=== PATIENT | male | born 1980 | race Caucasian/White ===

== ENCOUNTER 2017-11-29 14:51 | Emergency (ER) | payer MEDICAID, SELFPAY ==
[2017-11-29 14:55] VITALS: BP 139/87; PULSE 94; RESP 18; TEMP 36.4; O2SAT 100
--- NOTE | 2017-11-29 15:18 | DI.REPORT_ITS ---
SYMPTOMS/DIAGNOSIS: PAIN LATERALLY AFTER ROTATIONAL INJURY RIGHT FOOT: Three views. No acute fracture or dislocation is identified. No radiopaque foreign bodies are seen in the soft tissues. IMPRESSION: No acute abnormality.
--- NOTE | 2017-11-29 15:19 | ED.GENADUL ---
Disposition Clinical Impression: Foot sprain Disposition: HOME Condition: Fair Instructions: Foot Sprain (ED) Additional Instructions: Encourage rest, ice, elevation. Ibuprofen as needed for discomfort. You may take 600 mg 4 times daily. You may try topical options such as lidocaine patches to help with discomfort. Please follow-up with primary care if pain persists over the next 1-2 weeks. Postoperative shoe while pain persists. If you develop new or worsening symptoms please seek care urgently once again. Referrals: Nuvia Son DO [Primary Care Provider] - Medical Decision Making - Medical Decision Making Patient presents today with chief complaint of right foot pain after rotational injury. Patient's exam is concerning for ecchymosis and swelling along the lateral aspect of the foot. He is tender over the proximal fifth metatarsal. He is admitting with an antalgic gait. No pain with palpation about the ankle. Good range of motion although he does endorse some discomfort with dorsiflexion. Will obtain images to evaluate for possible fracture. Patient is requesting analgesics. He is allergic to Tylenol, will give ibuprofen. X-ray reviewed by myself as well as radiologist no acute abnormality noted. Discussed findings with the patient. Advised him sprain. Encourage rest, ice, elevation. Advised ibuprofen as needed for discomfort. Patient reports the ibuprofen was only minimal successful at helping with discomfort. We will augment this with a Lidoderm patch. Advise follow-up with primary care in 1 week if pain persists. He will be fitted with a postoperative shoe to help with pain with ambulation. We discussed new/worsening symptoms when to seek care urgently once again. All his questions and concerns were addressed and he is in agreement this plan. History of Present Illness - General Chief complaint: Orthopedic Stated complaint: RT FOOT INJURY Time Seen by Provider: 11/29/17 14:56 Source: patient, RN notes reviewed Mode of arrival: ambulatory Limitations: no limitations - History of Present Illness Initial comments: Patient is a 37-year-old male presenting today with chief complaint of right foot pain. He reports that prior to arrival, after sitting for any sign a period of time, his fell asleep. When we went to stand, his toe caught on the run and he suffered an internal rotational event to the right foot. Had initially thought pain was in the ankle but now identifies the pain more in the foot. Notes area of swelling and ecchymosis along the lateral aspect of the foot. States that he has been having pain with ambulation since he denies any altered sensation. Denies any other injury the time the incident. He did not fall. Denies any pain in the knee. States that he can have pain that radiates proximally particularly with dorsiflexion of the foot. - Related Data Amphet Asp/Amphet/D-Amphet [Adderall 10MG Tablet] 10 mg PO DAILY PRN PRN 10/21/17 Amphet Asp/Amphet/D-Amphet [Adderall Xr 30MG Capsule SA] 30 mg PO DAILY AM 10/21/17 Diazepam [Valium] 5 mg PO TID PRN #10 tab 10/21/17 Escitalopram Oxalate [Lexapro] 20 mg PO DAILY AM 10/21/17 Allergies Allergy/AdvReac Type Severity Reaction Status Date / Time Penicillins Allergy Intermediate throat Unverified 11/29/17 14:58 swelling and hives acetaminophen [From Tylenol] AdvReac Intermediate nausea Unverified 11/29/17 14:58 Review of Systems Constitutional: no symptoms reported Respiratory: no symptoms reported Musculoskeletal: as per HPI Skin: as per HPI Neurological: as per HPI Past Medical History - Past Medical History Medical history: GERD Back problem Surgical history: no surgical history General Exam - General Limitations: no limitations General appearance: alert, in no apparent distress - Head Head exam: Present: atraumatic - Eye Eye exam: Present: normal apperance - Respiratory Respiratory exam: Absent: respiratory distress - Extremities Exam Extremities exam: Present: full ROM (Full range of motion of the ankle although he does endorse discomfort particularly dorsiflexion.), tenderness, normal capillary refill. Absent: normal inspection (Exam the patient's right lower extremity significant for a 3 cm in diameter area of ecchymosis and swelling over the axonal lateral aspect of the patient's right foot. No pain to palpation over the lateral malleolus. No pain of the medial malleolus. Achilles is palpable and felt to be intact. Negative Delgadillo test. No pain with palpation over the fibular head or neck. Sensation is intact in the toes. Brisk capillary refill. 2+ distal pulses. Patient does endorse some discomfort with palpation over the proximal fifth metatarsal.), pedal edema, joint swelling, calf tenderness - Neurological Exam Neurological exam: Present: alert, abnormal gait (Ambulating with an antalgic gait). Absent: motor sensory deficit - Psychiatric Psychiatric exam: Present: normal affect, normal mood - Skin Skin exam: Present: warm, dry, intact. Absent: normal color (Ecchymosis as above) Course Vital Signs - 24 hr 11/29/17 14:55 Temperature 36.4 C L Pulse 94 H Respiratory 18 Rate Blood Pressure 139/87 Pulse Oximetry 100
[2017-11-29] MEDS: Ibuprofen 600 MG TAB PO (15:23)
[2017-11-29] MEDS: Lidocaine 5% Patch 1 PATCH TP (16:09)
== END 2017-11-29 16:15 | disposition home or self-care (01) ==
LOC: ER 11-30 10:14
PROVIDERS: Emergency Provider Student in an Organized Health Care Education/Training Program; PCP Student in an Organized Health Care Education/Training Program
DX: S93.601A Unspecified sprain of right foot, initial encounter (principal); X50.1XXA Overexertion from prolonged static or awkward postures, initial encounter
CPT/HCPCS: 29515; 99284; 73630

== ENCOUNTER 2018-07-20 18:02 | Emergency (ER) | payer MEDICAID, SELFPAY ==
[2018-07-20 18:09] VITALS: BP 146/74; PULSE 112; RESP 16; TEMP 37.1; O2SAT 100
--- NOTE | 2018-07-20 19:26 | DI.US_ITS ---
SYMPTOMS/DIAGNOSIS: LEFT TESTICULAR SWELLING, CUT SCROTUM SHAVING 3 DAYS AGO THEN HAD INTERCOURSE, ? MRSA, ? ABSCESS SCROTAL ULTRASOUND: There is marked scrotal skin thickening. There are small bilateral hydroceles. There is debris within the right hydrocele, which could indicate infection. There is mild hyperemia of the left testicle. The epididymides are unremarkable. There is edema in the left inguinal canal. No drainable fluid collection is seen. There are multiple enlarged, hyperemic lymph nodes, the largest measuring 3 cm, consistent with reactive lymph nodes. Bilateral varicoceles are seen, left greater than right, increasing with Valsalva. IMPRESSION: Scrotal cellulitis as well as left inguinal cellulitis, greater on the left. Reactive inguinal lymph nodes. Small bilateral hydroceles, as well as varicoceles. Mild left orchitis.
[2018-07-20] MEDS: Normal Saline 1,000 ML 1000 ML IV (19:47)
--- NOTE | 2018-07-20 19:52 | ED.GENADUL_ITS ---
Discharge Plan Disposition Patient Disposition: [facility] Condition: Stable Discharge Details Chief Complaint: Cellulitis Clinical Impression: Abscess of scrotum Primary Care Provider: Emily Bolanos ED Provider: Randolph Murphy Home Meds and New Rx's Prescriptions: No Action dextroamphetamine-amphetamine 10 MG tablet 15 mg PO DAILY PRN PRNRF: 0 dextroamphetamine-amphetamine 30 MG capsule,extended release 24hr 30 mg PO DAILY AM RF: 0 escitalopram oxalate [Lexapro] 20 MG tablet 20 mg PO DAILY AM RF: 0 sulfamethoxazole-trimethoprim [Bactrim DS] 800-160 mg Tablet 1 tab PO BID RF: 0 Discharge Data Discharge Date/Time-TO BE ENTERED AT DEPARTURE: 07/21/18 01:25 Medical Decision Making Patient presented to the emergency department for chief complaint of testicular infection. Patient states approximately 5 days ago he had what he thought were 2 small pimples from shave testicle area that turned into larger pimples causing significant pain and redness. Today the right testicle opened up and used a whitish fluid but the left testicle is continued to swell and causing radiating discomfort into the left groin area. Physical exam shows open lesion approximately 1 cm in diameter with purulent drainage noted and surrounding erythema. Right testicle is mild to moderately tender. Left testicle is significantly swollen with erythema, significant induration, and difficult to palpate for any lymphadenopathy due to swelling to groin and tenderness. Plan to check labs, establish IV access, give vancomycin, perform wound culture. Patient has no ecchymosis noted so doubt guadalupe gangrene but it is considered. Plan to do ultrasound of the testicle. Of note is that patient significant other was recently diagnosed and treated for MRSA infection of the face. Review of labs show a leukocytosis, unremarkable CMP with normal sodium, creatinine, and glucose. Urinalysis shows no signs of urinary infection. IMPRESSION: 1. Extensive left groin cellulitis with evidence for an underlying small subcutaneous abscess and questionable draining skin tract with skin pustule. Cellulitis/inflammatory changes extend throughout the left hemiscrotum as well. Please review above for details. 2. Testicles appear unremarkable by CT, however please note that CT is not the study of choice for evaluation of testicular pathology, and therefore further evaluation with ultrasound is recommended if clinically warranted. 3. Other incidental findings as detailed above. Multiple attempts were made to get a hold of local urologist for concern of abscess needing drainage of the left testicle. Due to no local availability for urology I did call and contact [facility] and was able to speak to urologist Dr. Razo whom recommended patient be transferred to emergency department for procedure. Spoke with attending ED whom accepted transfer patient and recommended Zosyn for gram-negative coverage on top of the vancomycin but given patient has victoria allergy of throat swelling and hives patient was placed upon Aztreonam 1 g for gram-negative coverage. Patient was agreeable to this plan. Lab Data Lab Results 07/20/18 07/20/18 07/20/18 Range/Units 19:40 19:40 19:40 WBC 12.93 H (4.4-10.8) k/cumm RBC 4.23 L (4.50-6.00) m/cumm Hgb 12.7 L (13.5-17.5) g/dL Hct 38.4 L (40.0-50.0) % MCV 90.8 (80-95) fL MCH 30.0 (27.0-33.0) pg MCHC 33.1 (32.0-36.0) g/dL RDW 13.3 (11.8-14.1) % Plt Count 163 (130-400) x1000/uL MPV 10.5 (8.0-11.0) fL Immature Gran % 0.2 Neutrophils % 78.5 Lymphocytes % 10.9 Monocytes % 9.7 Eosinophils % 0.5 Basophils % 0.2 Absolute Neutrophils 10.15 H (1.2-6.7) k/cumm Absolute Lymphocytes 1.41 (1.2-3.4) k/cumm Absolute Monocytes 1.25 H (0.11-0.7) k/cumm Absolute Eosinophils 0.06 (0.0-0.7) k/cumm Absolute Basophils 0.03 (0.0-0.2) k/cumm ESR (0-15) MM/HR Sodium 138 (136-145) mmol/L Potassium 4.2 (3.5-5.1) mmol/L Chloride 100 (98-107) mmol/L Carbon Dioxide 27.8 (21.0-32.0) mmol/L Anion Gap 10.2 (3-11) mmol/L BUN 15 (7-18) mg/dL Creatinine 1.08 (0.70-1.30) mg/dL Estimated GFR/1.73 m2 >= 60.00 (mL/min/1.73m2) Glucose 89 (70-100) mg/dL Lactate 1.4 (0.6-1.4) mmol/L Calcium 8.4 L (8.5-10.1) mg/dL Total Bilirubin 0.4 (0.2-1.0) mg/dL AST 31 (15-37) U/L ALT 72 (12-78) U/L Alkaline Phosphatase 87 (46-116) U/L C-Reactive Protein (0.0-0.3) mg/dL Total Protein 7.6 (6.4-8.2) g/dL Albumin 3.8 (3.4-5.0) g/dL Urine Color (Yellow) Urine Clarity Urine pH (5-8) Ur Specific [place] (1.005-1.025) Urine Protein (Negative) mg/dL Urine Ketones (Negative) mg/dL Urine Blood (Negative) Urine Nitrite (Negative) Urine Bilirubin (Negative) Urine Urobilinogen (Up TO 0.2) EU/dL Ur Leukocyte Esterase (Negative) Urine RBC (0-2) Urine WBC (0-5) HPF Ur Epithelial Cells (Negative) HPF Urine Crystals (Negative) HPF Urine Bacteria (Negative) HPF Urine Casts (Negative) LPF Urine Mucus (Negative) Urine Other (Negative) Ur Culture Indicated? Urine Glucose (Negative) mg/dL 07/20/18 07/20/18 07/20/18 Range/Units 19:40 19:40 20:05 WBC (4.4-10.8) k/cumm RBC (4.50-6.00) m/cumm Hgb (13.5-17.5) g/dL Hct (40.0-50.0) % MCV (80-95) fL MCH (27.0-33.0) pg MCHC (32.0-36.0) g/dL RDW (11.8-14.1) % Plt Count (130-400) x1000/uL MPV (8.0-11.0) fL Immature Gran % Neutrophils % Lymphocytes % Monocytes % Eosinophils % Basophils % Absolute Neutrophils (1.2-6.7) k/cumm Absolute Lymphocytes (1.2-3.4) k/cumm Absolute Monocytes (0.11-0.7) k/cumm Absolute Eosinophils (0.0-0.7) k/cumm Absolute Basophils (0.0-0.2) k/cumm ESR 29 H (0-15) MM/HR Sodium (136-145) mmol/L Potassium (3.5-5.1) mmol/L Chloride (98-107) mmol/L Carbon Dioxide (21.0-32.0) mmol/L Anion Gap (3-11) mmol/L BUN (7-18) mg/dL Creatinine (0.70-1.30) mg/dL Estimated GFR/1.73 m2 (mL/min/1.73m2) Glucose (70-100) mg/dL Lactate (0.6-1.4) mmol/L Calcium (8.5-10.1) mg/dL Total Bilirubin (0.2-1.0) mg/dL AST (15-37) U/L ALT (12-78) U/L Alkaline Phosphatase (46-116) U/L C-Reactive Protein 6.31 H (0.0-0.3) mg/dL Total Protein (6.4-8.2) g/dL Albumin (3.4-5.0) g/dL Urine Color Yellow (Yellow) Urine Clarity Clear Urine pH 6.5 (5-8) Ur Specific [place] 1.015 (1.005-1.025) Urine Protein Negative (Negative) mg/dL Urine Ketones Negative (Negative) mg/dL Urine Blood Trace-intact H (Negative) Urine Nitrite Negative (Negative) Urine Bilirubin Negative (Negative) Urine Urobilinogen 1.0 H (Up TO 0.2) EU/dL Ur Leukocyte Esterase Negative (Negative) Urine RBC 0-2 (0-2) Urine WBC Negative (0-5) HPF Ur Epithelial Cells Negative (Negative) HPF Urine Crystals Negative (Negative) HPF Urine Bacteria Negative (Negative) HPF Urine Casts Negative (Negative) LPF Urine Mucus Negative (Negative) Urine Other Negative (Negative) Ur Culture Indicated? No Urine Glucose Negative (Negative) mg/dL HPI General Mode of arrival: ambulatory . Date/Time Provider Initiated Documentation: 07/20/18 18:53 . Limitations to Documentation: no limitations . Information obtained by: patient and RN notes reviewed . History of Present Illness 38 year old M presents to the emergency department with the chief complaint of Testicle infection, described as severe, with intensity rated at 7. Quality is described as aching, and is localized to the genitals. Patient started experiencing this day(s) (5) and it has been constant. No relieving factors improve symptom(s), Patient did receive the following treatments prior to arrival, none Related Data Home Medications Medication Instructions Recorded Confirmed dextroamphetamine-amphetamine 15 mg PO DAILY PRN PRN 10/21/17 07/23/18 dextroamphetamine-amphetamine 30 mg PO DAILY AM 10/21/17 07/23/18 escitalopram oxalate [Lexapro] 20 mg PO DAILY AM 10/21/17 07/23/18 sulfamethoxazole-trimethoprim 1 tab PO BID 07/22/18 07/23/18 [Bactrim DS] Allergies Allergy/AdvReac Type Severity Reaction Status Date / Time Penicillins Allergy Intermediate throat Unverified 07/22/18 10:07 swelling and hives acetaminophen [From Tylenol] AdvReac Intermediate nausea Unverified 07/22/18 10:07 General Stated Complaint: Cellulitis LIDA: 3 Review of Systems Constitutional Reports chills, Reports malaise and Reports night sweats Cardiovascular Denies chest pain and Denies dyspnea Respiratory Denies dyspnea Gastrointestinal Reports abdominal pain, Reports nausea and Denies vomiting Genitourinary Reports as per HPI, Denies difficulty urinating, Reports genital pain, Denies dysuria, Denies penile discharge, Reports scrotal swelling and Reports testicular mass [facility] Medical History ADHD (Acute) Cellulitis of scrotum (Acute) Substance abuse (Suspected) Family History Mother Stroke Father No problems noted. Sister No problems noted. 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 Do you feel safe at home: Yes Do you feel safe in your relationship?: Yes Exam Const General: cooperative, no acute distress and not ill appearing Orientation: alert, awake and oriented x3 HENMT Mouth: moist mucous membranes Resp Effort & Inspection: normal respiratory effort, able to speak in complete sentences and no respiratory distress Cardio Rate: tachycardic Rhythm: regular rhythm Scrotum: erythematous bilaterally and scrotal mass bilaterally (left worse than right, right open and draining) erythematous, fixed, firm and tender Course Vital Signs Temperature 37.1 C 07/20/18 18:09 Pulse 112 H 07/20/18 18:09 Respiratory Rate 16 07/20/18 18:09 Blood Pressure 146/74 H 07/20/18 18:09 Pulse Oximetry 100 07/20/18 18:09 Temperature 37.1 C 07/20/18 18:09 Temperature Source Skin 07/20/18 18:09 Pulse 112 H 07/20/18 18:09 Respiratory Rate 16 07/20/18 18:09 Respiratory Effort Non-Labored 07/20/18 18:09 Blood Pressure 146/74 H 07/20/18 18:09 Blood Pressure Position Sitting 07/20/18 18:09 Pulse Oximetry 100 07/20/18 18:09 Oxygen Delivery Method Room Air 07/20/18 18:09 Oxygen Flow Rate 0 07/20/18 18:09 Pain Level 7 07/20/18 18:09 Lab/Test Results Lab/Test Results: 07/20/18 19:48 Scrotum Wound Culture - Pending 07/20/18 19:48 Scrotum Gram Stain - Pending
[2018-07-20 19:54] LABS: Lactate 1.4 mmol/L (0.6-1.4)
[2018-07-20 19:57] LABS: Abs Immature Grans 0.03 k/cumm (0.0-0.09); Absolute Lymphocyte Count 1.41 k/cumm (1.2-3.4); Absolute Monocyte Count 1.25 k/cumm (0.11-0.7); Absolute Neutrophil Count 10.15 k/cumm (1.2-6.7); Basophils % 0.2; Eosinophils % 0.5; HCT 38.4 % (40.0-50.0); HGB 12.7 g/dL (13.5-17.5); Immature Grans % 0.2; Lymphocytes % 10.9; Mean Corp. HGB Concentration 33.1 g/dL (32.0-36.0); Mean Corpuscular Volume 90.8 fL (80-95); Mean Platelet Volume 10.5 fL (8.0-11.0); Monocytes % 9.7; Neutrophils % 78.5; Platelet Count 163 x1000/uL (130-400); RBC 4.23 m/cumm (4.50-6.00); RBC Distribution Width 13.3 % (11.8-14.1); White Blood Cell Count 12.93 k/cumm (4.4-10.8)
[2018-07-20 20:07] LABS: Absolute Basophil Count 0.03 k/cumm (0.0-0.2); Absolute Eosinophil Count 0.06 k/cumm (0.0-0.7)
[2018-07-20 20:12] LABS: ALT 72 U/L (12-78); AST 31 U/L (15-37); Albumin 3.8 g/dL (3.4-5.0); Alkaline Phosphatase 87 U/L (46-116); Anion Gap 10.2 mmol/L (3-11); BUN 15 mg/dL (7-18); Bilirubin, Total 0.4 mg/dL (0.2-1.0); CO2 27.8 mmol/L (21.0-32.0); CREATININE 1.08 mg/dL (0.70-1.30); Calcium 8.4 mg/dL (8.5-10.1); Chloride 100 mmol/L (98-107); Glucose 89 mg/dL (70-100); Potassium 4.2 mmol/L (3.5-5.1); Sodium 138 mmol/L (136-145); Total Protein 7.6 g/dL (6.4-8.2)
[2018-07-20 20:13] LABS: Bilirubin Negative (Negative); Blood Trace-intact (Negative); Clarity Clear; Glucose Negative (Negative); Ketones Negative (Negative); Leukocyte Esterase Negative (Negative); Nitrite Negative (Negative); Specific Gravity 1.015 (1.005-1.025); pH 6.5 (5-8)
[2018-07-20 20:19] LABS: Bacteria Negative HPF (Negative); Casts Negative LPF (Negative); Crystals Negative HPF (Negative); Epithelial Cells Negative HPF (Negative); Mucus Negative (Negative); Other Cells Negative (Negative); RBC 0-2 (0-2); WBC Negative HPF (0-5)
[2018-07-20 20:20] LABS: C & S Indicated? No
[2018-07-20] MEDS: VANCOMYCIN 1,500 MG in Normal Saline 250 ML 166.6666 MG IVPB (20:23)
--- NOTE | 2018-07-20 20:35 | DI.CT_ITS ---
SYMPTOMS/DIAGNOSIS: TESTICULAR INFECTION CT OF THE PELVIS: The exam was performed following IV contrast. There is marked scrotal skin thickening. The testicles appear symmetric. The findings appear greater on the left side. There is also stranding in the subcutaneous fat of the inguinal regions bilaterally, left greater than right. No drainable abscess is identified. The bladder, prostate and visualized portions of the bowel are unremarkable. IMPRESSION: Marked scrotal and inguinal cellulitis. No drainable abscess is visible.
[2018-07-20] MEDS: HYDROmorphone 2 MG/ML VIAL 0.5 MG IVP ×2 (20:38→21:55)
[2018-07-20 20:41] LABS: C-Reactive Protein 6.31 mg/dL (0.0-0.3)
[2018-07-20] MEDS: Ibuprofen 600 MG TAB (20:45)
[2018-07-20] MEDS: Omnipaque 350 MG/ML 100 ML BTL IJ (21:00)
[2018-07-20 21:07] LABS: ESR 29 MM/HR (0-15)
--- NOTE | 2018-07-20 21:19 | DI.VRAD_ITS ---
EXAM: CT Abdomen and Pelvis With Contrast EXAM DATE/TIME: 07/20/2018 8:36 PM CLINICAL HISTORY: 38 years old, male; Other: Testicular pain; Patient HX: Elevated wbc, testicular swelling, rule out testicular infection. TECHNIQUE: Imaging protocol: Axial computed tomography images of the abdomen and pelvis with intravenous contrast. Radiation optimization: All CT scans at this facility use at least one of these dose optimization techniques: automated exposure control; mA and/or kV adjustment per patient size (includes targeted exams where dose is matched to clinical indication); or iterative reconstruction. Contrast material: OMNIPAQUE 350; Contrast volume: 100 ml; Contrast route: IV; COMPARISON: No relevant prior studies available. FINDINGS: Limitations: The mid to upper abdomen was not completely included in this examination. ABDOMEN: Liver: Liver is not completely included in this examination. There is a 8mm hypodense lesion in the left hepatic lobe on image 4 series 2 which is incompletely characterized on this exam, however favors a cyst. Remainder of the visualized liver appears unremarkable. Gallbladder and bile ducts: Gallbladder is incompletely imaged, however visualized segments are unremarkable. Biliary system is incompletely imaged, however no discrete biliary ductal dilation is appreciated. Pancreas: Visualized pancreatic head appears unremarkable. Remainder of the pancreas was not imaged. Spleen: Visualized segments of the spleen appear unremarkable. Adrenals: Normal. No mass. Kidneys and ureters: Visualized kidneys appear unremarkable. Stomach and bowel: Normal. No obstruction. No mucosal thickening. Appendix: No evidence of appendicitis. PELVIS: Bladder: Unremarkable as visualized. Reproductive: Prostate gland appears unremarkable. The testicles appear unremarkable by CT, however please note that this is not the study of choice for evaluation of testicular pathology. Visualized segments of the penis appear grossly unremarkable. ABDOMEN and PELVIS: Intraperitoneal space: Normal. No free air. No significant fluid collection. Bones/joints: No acute skeletal abnormality or aggressive osseous lesion. Soft tissues: There is significant soft tissue swelling and stranding throughout the left groin subcutaneous tissues, with an associated 1.3 cm by 9.6 mm x 2.9 cm rim-enhancing fluid collection (image 61 series 2 and image 19 series 4) favoring abscess. There is question of a small draining tract into the skin with an associated small skin pustule (image 51 series 5). Inflammatory changes extend up the left hemiscrotum, with significant skin thickening of the left hemiscrotum when compared with the right. There is mild soft tissue swelling at the mons pubis likewise noted. Vasculature: Normal. No abdominal aortic aneurysm. Lymph nodes: There is reactive left inguinal adenopathy. IMPRESSION: 1. Extensive left groin cellulitis with evidence for an underlying small subcutaneous abscess and questionable draining skin tract with skin pustule. Cellulitis/inflammatory changes extend throughout the left hemiscrotum as well. Please review above for details. 2. Testicles appear unremarkable by CT, however please note that CT is not the study of choice for evaluation of testicular pathology, and therefore further evaluation with ultrasound is recommended if clinically warranted. 3. Other incidental findings as detailed above. Dictated and Authenticated by: Yves Kessler MD. Ordering:NURY Dickson MD
--- NOTE | 2018-07-20 22:20 | DI.VRAD_ITS ---
EXAM: US Scrotum EXAM DATE/TIME: 07/20/2018 9:33 PM CLINICAL HISTORY: 38 years old, male; Signs and symptoms; Other: PT cut himself shaving scrotum on left and right lateral sides, then developed pain/swelling in scrotum especially to left side and left inguinal canal TECHNIQUE: Imaging protocol: Real-time ultrasound of the scrotum and contents with color Doppler and image documentation. COMPARISON: No relevant prior studies available. FINDINGS: Right Testicle: Normal. No mass. No torsion. Normal vascular flow. Left Testicle: Normal. No mass. No torsion. Slightly more pronounced vascularity when compared with the right. Epididymides: There is a tiny left epididymal head cyst measuring 1.8 mm, of no concern. Epididymis appear otherwise unremarkable. Scrotum: The there is a small right hydrocele with heterogeneous internal contents. Small complex left varicocele with internal debris likely seen. Small bilateral varicoceles suggested. Diffuse scrotal wall thickening, most pronounced on the left side. Diffuse scrotal hyperemia. Lymph nodes: There is left inguinal adenopathy. Other findings: Diffuse swelling and edema throughout the left inguinal canal. No discrete fluid collection is noted within the left inguinal region in the provided images. IMPRESSION: 1. Diffuse scrotal cellulitis, more pronounced on the left hemiscrotum. 2. Slightly more hyperemic left testicle, raising concern for the possibility of early left orchitis. 3. Small bilateral complex hydroceles. 4. Small bilateral varicoceles suggested. 5. Diffuse left inguinal cellulitis and reactive adenopathy. No discrete fluid collections identified in the provided images. Dictated and Authenticated by: Yves Kessler MD. Ordering:NURY Dickson MD
[2018-07-20 22:51] VITALS: BP 99/60; PULSE 86; RESP 18; TEMP 36.5; O2SAT 98
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
[2018-07-21 00:56] VITALS: BP 100/65; PULSE 87; RESP 18; TEMP 36.9; O2SAT 98
[2018-07-21] MEDS: HYDROmorphone 2 MG/ML VIAL (01:04)
[2018-07-21 01:14] VITALS: BP 100/65; PULSE 87; RESP 18; TEMP 36.9; O2SAT 98
== END 2018-07-21 01:25 | disposition short-term general hospital (02) ==
PROVIDERS: Emergency Provider Nurse Practitioner Family; PCP Nurse Practitioner
DX: N49.2 Inflammatory disorders of scrotum (principal)
CPT/HCPCS: 80053; 85652; 87077; 96361; 96365; 96367; 96375; 99285; 72193; 76870; 81003; 81015; 83605; 85025; 86140; 87070; 87186; 87205; 99284; J3490

== ENCOUNTER 2018-07-22 09:52 | Observation (INO) | payer MEDICAID, SELFPAY ==
[2018-07-22 09:56] VITALS: BP 139/71; PULSE 95; RESP 14; TEMP 37.1; O2SAT 100
--- NOTE | 2018-07-22 10:13 | W.ED.GENAD ---
Discharge Plan Disposition Patient Disposition: [facility] INPATIENT Condition: Stable Discharge Details Chief Complaint: Cellulitis Clinical Impression: Cellulitis of scrotum Primary Care Provider: Emily Bolanos ED Provider: Micah Hurd Home Meds and New Rx's Prescriptions: No Action dextroamphetamine-amphetamine 10 MG tablet 15 mg PO DAILY PRN PRNRF: 0 dextroamphetamine-amphetamine 30 MG capsule,extended release 24hr 30 mg PO DAILY AM RF: 0 escitalopram oxalate [Lexapro] 20 MG tablet 20 mg PO DAILY AM RF: 0 sulfamethoxazole-trimethoprim [Bactrim DS] 800-160 mg Tablet 1 tab PO BID RF: 0 Medical Decision Making 38-year-old male who was initially seen in the emergency department on July 20, transferred to [facility] for scrotal abscess. He reports drainage during this procedures and the use of vancomycin as an inpatient. He states that he was discharged home, partly due to his required attendance at a parental meeting. He has been taking Bactrim since the time of discharge. He was scheduled for urology outpatient follow-up this morning at 930 but was unable to make it due to ongoing pain and swelling in the scrotal region. He states this is worse. Patient's wound culture obtained on July 20 reveals MRSA with susceptible abilities pending. He is afebrile with normal blood pressure. IV placed, labs obtained including blood culture. Patient given fluid bolus, vancomycin, urology consult placed and patient seen in the ED by Dr Nichols. CT images obtained without evidence of abscess. He certainly has soft tissue stranding and edematous changes primarily on the left side of the mons pubis. Reviewed with Dr. Nichols and Dr. Jamison. Dr. Nichols recommends admission to the medicine service with urology in consultation. Ongoing daily parenteral antibiotics. Patient to be n.p.o. for the morning but may eat tonight. No planned surgical approach at this time. Lab Data Lab results reviewed: Yes I reviewed the patient's lab results. Laboratory Results - last 24 hr 07/22/18 07/22/18 07/22/18 10:15 10:15 10:15 WBC 10.12 RBC 4.37 L Hgb 13.4 L Hct 39.9 L MCV 91.3 MCH 30.7 MCHC 33.6 RDW 13.2 Plt Count 188 MPV 10.4 Immature Gran % 0.1 Neutrophils % 77.6 Lymphocytes % 11.5 Monocytes % 9.5 Eosinophils % 1.0 Basophils % 0.3 Absolute Neutrophils 7.86 H Absolute Lymphocytes 1.16 L Absolute Monocytes 0.96 H Absolute Eosinophils 0.10 Absolute Basophils 0.03 Sodium 137 Potassium 3.6 Chloride 99 Carbon Dioxide 27.1 Anion Gap 10.9 BUN 9 D Creatinine 1.06 Estimated GFR/1.73 m2 >= 60.00 Glucose 110 H Lactate 1.2 Calcium 9.0 Magnesium 1.8 Total Bilirubin 0.5 AST 45 H ALT 80 H Alkaline Phosphatase 111 Total Protein 8.4 H Albumin 4.1 Urine Color Urine Clarity Urine pH Ur Specific [place] Urine Protein Urine Ketones Urine Blood Urine Nitrite Urine Bilirubin Urine Urobilinogen Ur Leukocyte Esterase Urine RBC Urine WBC Ur Epithelial Cells Urine Crystals Urine Bacteria Urine Casts Urine Mucus Urine Other Ur Culture Indicated? Urine Glucose 07/22/18 10:27 WBC RBC Hgb Hct MCV MCH MCHC RDW Plt Count MPV Immature Gran % Neutrophils % Lymphocytes % Monocytes % Eosinophils % Basophils % Absolute Neutrophils Absolute Lymphocytes Absolute Monocytes Absolute Eosinophils Absolute Basophils Sodium Potassium Chloride Carbon Dioxide Anion Gap BUN Creatinine Estimated GFR/1.73 m2 Glucose Lactate Calcium Magnesium Total Bilirubin AST ALT Alkaline Phosphatase Total Protein Albumin Urine Color Kiki Urine Clarity Clear Urine pH 7.0 Ur Specific [place] 1.025 Urine Protein 30 H Urine Ketones 15 H Urine Blood Negative Urine Nitrite Negative Urine Bilirubin Moderate H Urine Urobilinogen >=8.0 Ur Leukocyte Esterase Negative Urine RBC 0-2 Urine WBC 0-2 Ur Epithelial Cells Rare Urine Crystals Negative Urine Bacteria Rare Urine Casts Negative Urine Mucus Trace Urine Other Few yeast Ur Culture Indicated? No Urine Glucose Negative HPI General Mode of arrival: ambulatory. Date/Time Provider Initiated Documentation: 07/22/18 09:55. Limitations to Documentation: no limitations. Information obtained by: patient. History of Present Illness 38 year old M presents to the emergency department with the chief complaint of Scrotal infection. Discharge from [facility] yesterday, described as moderate, Quality is described as burning, dull and constant, and is localized to the pelvis and genitals. Patient started experiencing this day(s) and it has been constant. No relieving factors improve symptom(s), No exacerbating factors reported . Patient notes fever/chills, loss of appetite and rash. Patient did receive the following treatments prior to arrival, other (On Bactrim. Had received vancomycin during admission to [facility]) Related Data Home Medications Medication Instructions Recorded Confirmed dextroamphetamine-amphetamine 15 mg PO DAILY PRN PRN 10/21/17 07/22/18 dextroamphetamine-amphetamine 30 mg PO DAILY AM 10/21/17 07/22/18 escitalopram oxalate [Lexapro] 20 mg PO DAILY AM 10/21/17 07/22/18 sulfamethoxazole-trimethoprim 1 tab PO BID 07/22/18 07/22/18 [Bactrim DS] Allergies Allergy/AdvReac Type Severity Reaction Status Date / Time Penicillins Allergy Intermediate throat Unverified 07/22/18 10:07 swelling and hives acetaminophen [From Tylenol] AdvReac Intermediate nausea Unverified 07/22/18 10:07 General Stated Complaint: Cellulitis LIDA: 3 Review of Systems Review of Systems Scrotal pain and swelling, increasing redness, worse since onset and worse since discharge. Eating and drinking but less than normal [facility] Family History Mother Stroke Father No problems noted. Sister No problems noted. Social History Smoking/Tobacco Use Status: Current every day Drug use: Never Do you feel safe at home: Yes Do you feel safe in your relationship?: Yes Exam Narrative Exam Narrative: GEN: awake, alert, oriented 3. Pleasant, well groomed, interactive. HEAD: Normocephalic, atraumatic ENT: Mucous membranes moist, oropharynx unremarkable, External ear exam unremarkable EYES: PERRL, EOMI NECK: Full ROM, no IVON, no menigismus CHEST/RESP: Nontender, clear to auscultation bilateral, no wheeze/rhonchi/rales CARDIOVASCULAR: RRR, no murmur, rub soo. 2+ Rad pulse bilateral ABDOMEN and : Soft, mild suprapubic tenderness. +Bowel sounds. There is erythema overlying edematous changes to the suprapubic region left greater than right that extends through the scrotum. Scrotum is swollen, tender, there is drainage from the right inferior and left-sided ulcerations. 2+ femoral pulses bilaterally EXT: Full ROM, no edema, no rash Neuro: Grossly normal neurologic exam, conversant, interactive. Psych: Speech fluent, thoughts congruent, affect normal Course Vital Signs Temperature 37.1 C 07/22/18 09:56 Pulse 95 H 07/22/18 09:56 Respiratory Rate 14 07/22/18 09:56 Blood Pressure 139/71 07/22/18 09:56 Pulse Oximetry 100 07/22/18 09:56 Temperature 37.1 C 07/22/18 09:56 Temperature Source Temporal Artery Scan 07/22/18 09:56 Pulse 95 H 07/22/18 09:56 Respiratory Rate 14 07/22/18 09:56 Respiratory Effort Non-Labored 07/22/18 10:04 Blood Pressure 139/71 07/22/18 09:56 Blood Pressure Position Supine 07/22/18 09:56 Pulse Oximetry 100 07/22/18 09:56 Oxygen Delivery Method Room Air 07/22/18 09:56 Oxygen Flow Rate 0 07/22/18 09:56 Pain Level 10 07/22/18 09:56 Lab/Test Results Lab/Test Results: 07/22/18 10:10 Blood Blood Culture - Pending 07/22/18 10:10 Blood Blood Culture - Pending
--- NOTE | 2018-07-22 10:17 | ED.GENADUL_ITS ---
Discharge Plan Disposition Patient Disposition: [facility] INPATIENT Condition: Stable Discharge Details Chief Complaint: Cellulitis Clinical Impression: Cellulitis of scrotum Primary Care Provider: Emily Bolanos ED Provider: Micah Hurd Home Meds and New Rx's Prescriptions: No Action dextroamphetamine-amphetamine 10 MG tablet 15 mg PO DAILY PRN PRNRF: 0 dextroamphetamine-amphetamine 30 MG capsule,extended release 24hr 30 mg PO DAILY AM RF: 0 escitalopram oxalate [Lexapro] 20 MG tablet 20 mg PO DAILY AM RF: 0 sulfamethoxazole-trimethoprim [Bactrim DS] 800-160 mg Tablet 1 tab PO BID RF: 0 Medical Decision Making 38-year-old male who was initially seen in the emergency department on July 20, transferred to [facility] for scrotal abscess. He reports drainage during this procedures and the use of vancomycin as an inpatient. He states that he was discharged home, partly due to his required attendance at a parental meeting. He has been taking Bactrim since the time of discharge. He was scheduled for urology outpatient follow-up this morning at 930 but was unable to make it due to ongoing pain and swelling in the scrotal region. He states this is worse. Patient's wound culture obtained on July 20 reveals MRSA with susceptible ginger lities pending. He is afebrile with normal blood pressure. IV placed, labs obtained including blood culture. Patient given fluid bolus, vancomycin, urology consult placed and patient seen in the ED by Dr Nichols. CT images obtained without evidence of abscess. He certainly has soft tissue stranding and edematous changes primarily on the left side of the mons pubis. Reviewed with Dr. Nichols and Dr. Jamison. Dr. Nichols recommends admission to the medicine service with urology in consultation. Ongoing daily parenteral antibiotics. Patient to be n.p.o. for the morning but may eat tonight. No planned surgical approach at this time. Lab Data Lab results reviewed: Yes I reviewed the patient's lab results. Laboratory Results - last 24 hr 07/22/18 07/22/18 07/22/18 10:15 10:15 10:15 WBC 10.12 RBC 4.37 L Hgb 13.4 L Hct 39.9 L MCV 91.3 MCH 30.7 MCHC 33.6 RDW 13.2 Plt Count 188 MPV 10.4 Immature Gran % 0.1 Neutrophils % 77.6 Lymphocytes % 11.5 Monocytes % 9.5 Eosinophils % 1.0 Basophils % 0.3 Absolute Neutrophils 7.86 H Absolute Lymphocytes 1.16 L Absolute Monocytes 0.96 H Absolute Eosinophils 0.10 Absolute Basophils 0.03 Sodium 137 Potassium 3.6 Chloride 99 Carbon Dioxide 27.1 Anion Gap 10.9 BUN 9 D Creatinine 1.06 Estimated GFR/1.73 m2 >= 60.00 Glucose 110 H Lactate 1.2 Calcium 9.0 Magnesium 1.8 Total Bilirubin 0.5 AST 45 H ALT 80 H Alkaline Phosphatase 111 Total Protein 8.4 H Albumin 4.1 Urine Color Urine Clarity Urine pH Ur Specific [place] Urine Protein Urine Ketones Urine Blood Urine Nitrite Urine Bilirubin Urine Urobilinogen Ur Leukocyte Esterase Urine RBC Urine WBC Ur Epithelial Cells Urine Crystals Urine Bacteria Urine Casts Urine Mucus Urine Other Ur Culture Indicated? Urine Glucose 07/22/18 10:27 WBC RBC Hgb Hct MCV MCH MCHC RDW Plt Count MPV Immature Gran % Neutrophils % Lymphocytes % Monocytes % Eosinophils % Basophils % Absolute Neutrophils Absolute Lymphocytes Absolute Monocytes Absolute Eosinophils Absolute Basophils Sodium Potassium Chloride Carbon Dioxide Anion Gap BUN Creatinine Estimated GFR/1.73 m2 Glucose Lactate Calcium Magnesium Total Bilirubin AST ALT Alkaline Phosphatase Total Protein Albumin Urine Color Kiki Urine Clarity Clear Urine pH 7.0 Ur Specific [place] 1.025 Urine Protein 30 H Urine Ketones 15 H Urine Blood Negative Urine Nitrite Negative Urine Bilirubin Moderate H Urine Urobilinogen >=8.0 Ur Leukocyte Esterase Negative Urine RBC 0-2 Urine WBC 0-2 Ur Epithelial Cells Rare Urine Crystals Negative Urine Bacteria Rare Urine Casts Negative Urine Mucus Trace Urine Other Few yeast Ur Culture Indicated? No Urine Glucose Negative HPI General Mode of arrival: ambulatory . Date/Time Provider Initiated Documentation: 07/22/18 09:55 . Limitations to Documentation: no limitations . Information obtained by: patient . History of Present Illness 38 year old M presents to the emergency department with the chief complaint of Scrotal infection. Discharge from [facility] yesterday, described as moderate, Qual ity is described as burning, dull and constant, and is localized to the pelvis and genitals. Patient started experiencing this day(s) and it has been constant. No relieving factors improve symptom(s), No exacerbating factors reported . Patient notes fever/chills, loss of appetite and rash. Patient did receive the following treatments prior to arrival, other (On Bactrim. Had received vancomycin during admission to [facility]) Related Data Home Medications Medication Instructions Recorded Confirmed dextroamphetamine-amphetamine 15 mg PO DAILY PRN PRN 10/21/17 07/22/18 dextroamphetamine-amphetamine 30 mg PO DAILY AM 10/21/17 07/22/18 escitalopram oxalate [Lexapro] 20 mg PO DAILY AM 10/21/17 07/22/18 sulfamethoxazole-trimethoprim 1 tab PO BID 07/22/18 07/22/18 [Bactrim DS] Allergies Allergy/AdvReac Type Severity Reaction Status Date / Time Penicillins Allergy Intermediate throat Unverified 07/22/18 10:07 swelling and hives acetaminophen [From Tylenol] AdvReac Intermediate nausea Unverified 07/22/18 10:07 General Stated Complaint: Cellulitis LIDA: 3 Review of Systems Review of Systems Scrotal pain and swelling, increasing redness, worse since onset and worse since discharge. Eating and drinking but less than normal [facility] Family History Mother Stroke Father No problems noted. Sister No problems noted. Social History Smoking/Tobacco Use Status: Current every day Drug use: Never Do you feel safe at home: Yes Do you feel safe in your relationship?: Yes Exam Narrative Exam Narrative: GEN: awake, alert, oriented 3. Pleasant, well groomed, interactive. HEAD: Normocephalic, atraumatic ENT: Mucous membranes moist, oropharynx unremarkable, External ear exam unremarkable EYES: PERRL, EOMI NECK: Full ROM, no IVON, no menigismus CHEST/RESP: Nontender, clear to auscultation bilateral, no wheeze/rhonchi/rales CARDIOVASCULAR: RRR, no murmur, rub soo. 2+ Rad pulse bilateral ABDOMEN and : Soft, mild suprapubic tenderness. +Bowel sounds. There is erythema overlying edematous changes to the suprapubic region left greater than right that extends through the scrotum. Scrotum is swollen, tender, there is drainage from the right inferior and left-sided ulcerations. 2+ femoral pulses bilaterally EXT: Full ROM, no edema, no rash Neuro: Grossly normal neurologic exam, conversant, interactive. Psych: Speech fluent, thoughts congruent, affect normal Course Vital Signs Temperature 37.1 C 07/22/18 09:56 Pulse 95 H 07/22/18 09:56 Respiratory Rate 14 07/22/18 09:56 Blood Pressure 139/71 07/22/18 09:56 Pulse Oximetry 100 07/22/18 09:56 Temperature 37.1 C 07/22/18 09:56 Temperature Source Temporal Artery Scan 07/22/18 09:56 Pulse 95 H 07/22/18 09:56 Respiratory Rate 14 07/22/18 09:56 Respiratory Effort Non-Labored 07/22/18 10:04 Blood Pressure 139/71 07/22/18 09:56 Blood Pressure Position Supine 07/22/18 09:56 Pulse Oximetry 100 07/22/18 09:56 Oxygen Delivery Method Room Air 07/22/18 09:56 Oxygen Flow Rate 0 07/22/18 09:56 Pain Level 10 07/22/18 09:56 Lab/Test Results Lab/Test Results: 07/22/18 10:10 Blood Blood Culture - Pending 07/22/18 10:10 Blood Blood Culture - Pending
[2018-07-22 10:31] LABS: Abs Immature Grans 0.01 k/cumm (0.0-0.09); Absolute Basophil Count 0.03 k/cumm (0.0-0.2); Absolute Lymphocyte Count 1.16 k/cumm (1.2-3.4); Absolute Monocyte Count 0.96 k/cumm (0.11-0.7); Absolute Neutrophil Count 7.86 k/cumm (1.2-6.7); Basophils % 0.3; HCT 39.9 % (40.0-50.0); HGB 13.4 g/dL (13.5-17.5); Immature Grans % 0.1; Lactate 1.2 mmol/L (0.6-1.4); Lymphocytes % 11.5; Mean Corp. HGB Concentration 33.6 g/dL (32.0-36.0); Mean Corpuscular Hemoglobin 30.7 pg (27.0-33.0); Mean Corpuscular Volume 91.3 fL (80-95); Mean Platelet Volume 10.4 fL (8.0-11.0); Monocytes % 9.5; Neutrophils % 77.6; Platelet Count 188 x1000/uL (130-400); RBC 4.37 m/cumm (4.50-6.00); RBC Distribution Width 13.2 % (11.8-14.1); White Blood Cell Count 10.12 k/cumm (4.4-10.8)
[2018-07-22] MEDS: HYDROmorphone 2 MG/ML VIAL 1 MG IVP ×2 (10:31→11:36)
[2018-07-22] MEDS: Lactated Ringers 1,000 ML 1000 ML IV (10:32)
[2018-07-22 10:33] LABS: Bilirubin Moderate (Negative); Blood Negative (Negative); Clarity Clear; Glucose Negative (Negative); Ketones 15 mg/dL (Negative); Leukocyte Esterase Negative (Negative); Nitrite Negative (Negative); Specific Gravity 1.025 (1.005-1.025); Urobilinogen >=8.0 EU/dL (Up TO 0.2)
[2018-07-22 10:47] LABS: ALT 80 U/L (12-78); AST 45 U/L (15-37); Albumin 4.1 g/dL (3.4-5.0); Alkaline Phosphatase 111 U/L (46-116); Anion Gap 10.9 mmol/L (3-11); BUN 9 mg/dL (7-18); Bilirubin, Total 0.5 mg/dL (0.2-1.0); CO2 27.1 mmol/L (21.0-32.0); CREATININE 1.06 mg/dL (0.70-1.30); Chloride 99 mmol/L (98-107); Glucose 110 mg/dL (70-100); Magnesium 1.8 mg/dL (1.8-2.4); Potassium 3.6 mmol/L (3.5-5.1); Sodium 137 mmol/L (136-145); Total Protein 8.4 g/dL (6.4-8.2)
[2018-07-22 10:51] LABS: Epithelial Cells Rare HPF (Negative); RBC 0-2 (0-2); WBC 0-2 HPF (0-5)
[2018-07-22 10:52] LABS: Bacteria Rare HPF (Negative); C & S Indicated? No; Casts Negative LPF (Negative); Crystals Negative HPF (Negative); Mucus Trace (Negative); Other Cells Few Yeast (Negative)
--- NOTE | 2018-07-22 10:54 | DI.CT_ITS ---
SYMPTOMS/DIAGNOSIS: LEFT SUPRAPUBIC/INGUINAL/SCROTAL CELLULITIS, PAIN CT OF THE ABDOMEN AND PELVIS: Comparison is made with pelvic CT of June,. Images were performed from the lung bases through the ischial tuberosities after IV contrast and without oral contrast. The entire scrotum is not included on the current exam. Again noted is soft tissue swelling of the upper scrotum and bilateral inguinal canals, left greater than right. No drainable abscess is seen. There is no intraabdominal or pelvic abnormality. Reactive lymph nodes are again noted in both groin regions. The bladder and prostate are unremarkable. The lung bases show minimal dependent changes. IMPRESSION: No change in scrotal cellulitis and reactive groin lymph nodes. No intraabdominal abnormality is seen.
[2018-07-22] MEDS: Ketorolac 15 MG/ML VIAL IVP (11:39)
[2018-07-22] MEDS: Omnipaque 350 MG/ML 100 ML BTL IJ (13:21)
--- NOTE | 2018-07-22 15:26 | W.UROLOGYCON ---
Date of service: 07/22/18 Time of Service: 15:27 History of Present Illness Chief Complaint: Cellulitis Narrative: This is a 38-year-old gentleman who presented to the emergency room over the weekend with scrotal and inguinal cellulitis. There was concern about an abscess that would need to be drained. He was transferred to [facility]. He had a local procedure to drain a small abscess in the scrotum while he was being observed in the emergency room. He was given broad-spectrum antibiotics especially to cover MRSA. He was observed for about 24 hours and offered admission. He elected to go home and have outpatient follow-up. He was due to come to our office this morning, but he arrived nearly an hour late. He was then seen in the emergency room. On evaluation, there appeared to be increased erythema especially in the left groin. We recommended repeat imaging of the groin area to make sure there is no fluid collection that would need to be drained. When no specific abscess was identified, we recommended continued antibiotics and consideration of a incisional drainage of fluid collection develops. He states that the infection started after he shaved his scrotum and nicked the skin. He currently has draining areas on each side of the scrotum. One area was opened by the urology team at [facility]. The patient tells me that the other area drained spontaneously. He has no fever or chills. The blood work done in our ER is essentially unchanged from the blood work that was drawn in [facility] yesterday Review of Systems Review of Systems No fevers or chills No vision change or dysphasia No diabetes or thyroid No shortness of breath, cough or hemoptysis No chest pain or palpitations No nausea, vomiting, hepatitis, ulcers, jaundice, diarrhea or constipation No seizures, strokes or peripheral neuropathy No bleeding disorders or anemia No gout [facility] Medical History Substance abuse (Suspected) Family History Mother Stroke Father No problems noted. Sister No problems noted. Social History Smoking/Tobacco Use Status: Current every day Drug use: Never Do you feel safe at home: Yes Do you feel safe in your relationship?: Yes Exam Narrative Exam Narrative: He appears uncomfortable, but he does not appear septic or toxic. His vital signs are documented elsewhere The scrotum is erythematous and edematous, but there is no fluctuance or crepitance. At the junction of the scrotum and inguinal canal bilaterally, there are small open draining areas with purulent material. The suprapubic and left groin area showed increased erythema and swelling but again no fluctuance or crepitance. The area is firm. The demarcated area seems to be outside of the markers drawn by the providers at [facility] yesterday. He is a bit drowsy after having received IV narcotics. Results Last Vital Signs Temp 37.1 C 07/22/18 09:56 Pulse 95 H 07/22/18 09:56 Resp 14 07/22/18 09:56 BP 139/71 07/22/18 09:56 Pulse Ox 100 07/22/18 09:56 Labs : 07/22/18 10:15 07/22/18 10:15 Laboratory Results - last 24 hr 07/22/18 07/22/18 07/22/18 10:15 10:15 10:15 WBC 10.12 RBC 4.37 L Hgb 13.4 L Hct 39.9 L MCV 91.3 MCH 30.7 MCHC 33.6 RDW 13.2 Plt Count 188 MPV 10.4 Immature Gran % 0.1 Neutrophils % 77.6 Lymphocytes % 11.5 Monocytes % 9.5 Eosinophils % 1.0 Basophils % 0.3 Absolute Neutrophils 7.86 H Absolute Lymphocytes 1.16 L Absolute Monocytes 0.96 H Absolute Eosinophils 0.10 Absolute Basophils 0.03 Sodium 137 Potassium 3.6 Chloride 99 Carbon Dioxide 27.1 Anion Gap 10.9 BUN 9 D Creatinine 1.06 Estimated GFR/1.73 m2 >= 60.00 Glucose 110 H Lactate 1.2 Calcium 9.0 Magnesium 1.8 Total Bilirubin 0.5 AST 45 H ALT 80 H Alkaline Phosphatase 111 Total Protein 8.4 H Albumin 4.1 Urine Color Urine Clarity Urine pH Ur Specific [place] Urine Protein Urine Ketones Urine Blood Urine Nitrite Urine Bilirubin Urine Urobilinogen Ur Leukocyte Esterase Urine RBC Urine WBC Ur Epithelial Cells Urine Crystals Urine Bacteria Urine Casts Urine Mucus Urine Other Ur Culture Indicated? Urine Glucose 07/22/18 10:27 WBC RBC Hgb Hct MCV MCH MCHC RDW Plt Count MPV Immature Gran % Neutrophils % Lymphocytes % Monocytes % Eosinophils % Basophils % Absolute Neutrophils Absolute Lymphocytes Absolute Monocytes Absolute Eosinophils Absolute Basophils Sodium Potassium Chloride Carbon Dioxide Anion Gap BUN Creatinine Estimated GFR/1.73 m2 Glucose Lactate Calcium Magnesium Total Bilirubin AST ALT Alkaline Phosphatase Total Protein Albumin Urine Color [place] Urine Clarity Clear Urine pH 7.0 Ur Specific [place] 1.025 Urine Protein 30 H Urine Ketones 15 H Urine Blood Negative Urine Nitrite Negative Urine Bilirubin Moderate H Urine Urobilinogen >=8.0 Ur Leukocyte Esterase Negative Urine RBC 0-2 Urine WBC 0-2 Ur Epithelial Cells Rare Urine Crystals Negative Urine Bacteria Rare Urine Casts Negative Urine Mucus Trace Urine Other Few yeast Ur Culture Indicated? No Urine Glucose Negative Assessment and Plan (1) Cellulitis: Current visit: Yes Status: Acute Clinically and on imaging studies, there is no clear-cut indication that an incision and drainage procedure is required. I think IV antibiotics to cover MRSA is appropriate. I will follow him along daily with a backup plan to take him to the operating room and drain any fluid collection if an abscess becomes clinically obvious or if the patient has clinical progression.
[2018-07-22 16:14] VITALS: BP 109/69; PULSE 67; RESP 18; TEMP 37; O2SAT 100
[2018-07-22 16:26] VITALS: BP 109/69; PULSE 67; RESP 18; TEMP 37; O2SAT 100
[2018-07-22] MEDS: Ketorolac 15 MG/ML VIAL (16:36)
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
[2018-07-22] MEDS: Normal Saline Flush 10 ML SYR IVP (17:50)
[2018-07-22] MEDS: VANCOMYCIN 1,250 MG in Normal Saline 250 ML 166.667 MG IV (18:00)
[2018-07-22 19:07] LABS: *AMPHETAMINES SCREEN URINE POSITIVE (Negative); *BARBITURATES SCREEN URINE Negative (Negative); *BENZODIAZEPINES SCREEN URINE Negative (Negative); Cannabinoids THC Negative (Negative); Cocaine Screen,Urine Negative (Negative); METHADONE URINE SCREEN Negative (Negative); OPIATES URINE SCREEN POSITIVE (Negative)
[2018-07-22 19:18] LABS: Tricyclic Antidepressants Negative (Negative)
--- NOTE | 2018-07-22 19:53 | NUR.NOTE ---
Reviewed with patient the risk of leaving AMA without completing tx. Pt reports that he has a family emergency that he needs to attend to immediately and cannot stay. Offered to help in any way we could, pt declined and insists that he has to go. Reports that he will continue wiht his discharge plan from [facility] at [facility] and will continue oral antbx - expressed understanding that he could return to ER for continued tx at any time. Dr. Mason informed of pt's plan prior to pt leaving unit- no intervention from MD. Nursing carpentry supervisor also informed. Nursing Note:
--- NOTE | 2018-07-23 18:55 | W.PM.DS.N ---
Date of service: 07/22/18 Time of Service: 19:30 DS: Diagnosis Discharge Diagnosis (1) Cellulitis: Status: Acute (2) Back pain: Status: Acute (3) DVT prophylaxis: Status: Acute (4) Discharge planning issues: Status: Acute Discharge Plan Disposition Patient Disposition: AGAINST MEDICAL ADVICE Condition: Stable Discharge Details Chief Complaint: Cellulitis Reason For Visit: SCROTAL CELLULITIS Admit Date/Time: 07/22/18 14:49 Admit Provider: Dea Shaikh Attending Provider: Dea Shaikh Primary Care Provider: Emily Bolanos ED Provider: Micah Hurd Hospital Course Hospital Course: Mr. Madrid was admitted on 07/22/18 for the treatment of scrotal cellulitis with wound cultures positive for MRSA. See admission H&P dated 07/22/2018 for details. Unfortunately, he left AGAINST MEDICAL ADVICE at approximately 1930 the same evening due to reports of personal problems that he felt he needed to attend to. He left despite counseling to stay in the hospital, no prescriptions were provided. Home Meds and New Rx's Prescriptions: No Action dextroamphetamine-amphetamine 10 MG tablet 15 mg PO DAILY PRN PRNRF: 0 dextroamphetamine-amphetamine 30 MG capsule,extended release 24hr 30 mg PO DAILY AM RF: 0 escitalopram oxalate [Lexapro] 20 MG tablet 20 mg PO DAILY AM RF: 0 sulfamethoxazole-trimethoprim [Bactrim DS] 800-160 mg Tablet 1 tab PO BID RF: 0 Discharge Instructions Diet:: As Tolerated Discharge Data Discharge Date/Time-TO BE ENTERED AT DEPARTURE: 07/22/18 19:40 DS: Data Vitals/I&O Vitals and I&O: Vital Signs Temperature 37 C 07/22/18 16:26 Temperature Source Tympanic 07/22/18 16:26 Pulse 67 07/22/18 16:26 Pulse Rhythm Regular 07/22/18 16:14 Respiratory Rate 18 07/22/18 16:26 Respiratory Effort 07/22/18 16:14 Respiratory Depth Normal 07/22/18 16:14 Respiratory Pattern Normal 07/22/18 16:14 Blood Pressure 109/69 07/22/18 16:26 Blood Pressure Position Supine 07/22/18 09:56 Pulse Oximetry 100 07/22/18 16:26 Oxygen Delivery Method Room Air 07/22/18 16:26 Oxygen Flow Rate 0 07/22/18 16:26 Pain Level 8 07/22/18 17:50 Intake & Output 07/22/18 07/23/18 07/23/18 23:59 11:59 23:59 Intake Total 250 / 1250 Output Total 200 / 200 Balance 50 / 1050 Weight 86.183 kg Intake: IV 250 / 1250 Output: Urine 200 / 200 Other: Urine Color Light Kiki Urine Appearance Clear Urine Odor None Voiding Methods Toilet Labs on day of discharge: Labs from last 24 hours 07/22/18 10:27 Urine Opiates Screen Positive Urine Methadone Screen Negative Ur Barbiturates Screen Negative Ur Tricyclics Screen Negative Ur Amphetamines Screen Positive U Benzodiazepines Scrn Negative Urine Cocaine Screen Negative Ur THC Screen Negative Preliminary micro results at discharge 07/22/18 10:38 Blood Culture - Preliminary Blood NO GROWTH 24 HOURS 07/22/18 10:15 Blood Culture - Preliminary Blood NO GROWTH 24 HOURS PFSH Medical History ADHD (Acute) Substance abuse (Suspected) Family History Mother Stroke Social History Smoking/Tobacco Use Status: Current every day Alcohol Intake: never Drug use: Never Household members: spouse Housing: other Details: currently living at hotel Number of Children: 2 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
== END 2018-07-22 19:40 | disposition left against medical advice (07) ==
LOC: ER 14:24 → MS 15:56
PROVIDERS: Nurse Practitioner Adult Health; Admitting Provider Internal Medicine; Emergency Provider Emergency Medicine; PCP Nurse Practitioner; Visit Provider Internal Medicine
DX: N49.2 Inflammatory disorders of scrotum (principal); L03.314 Cellulitis of groin; B95.62 Methicillin resistant Staphylococcus aureus infection as the cause of diseases classified elsewhere; R59.0 Localized enlarged lymph nodes; R10.30 Lower abdominal pain, unspecified; S31.30XA Unspecified open wound of scrotum and testes, initial encounter; X58.XXXA Exposure to other specified factors, initial encounter; M54.5 Low back pain; F17.210 Nicotine dependence, cigarettes, uncomplicated
CPT/HCPCS: 36415; 80053; 80307; 87040; 96361; 96365; 96366; 96375; 96376; 99285; 74177; 81003; 81015; 83605; 83735; 85025; 99219; 99284; G0378; J1885; J3370; J3490

== ENCOUNTER 2018-07-23 01:16 | Inpatient (IN) | payer MEDICAID, SELFPAY ==
[2018-07-23] VITALS (69 sets, daily range): BP systolic 96–134; BP diastolic 56–88; PULSE 71–131; RESP 10–31; TEMP 36.4–39.5; O2SAT 91–100
--- NOTE | 2018-07-23 01:34 | W.ED.GENAD ---
Discharge Plan Disposition Patient Disposition: [facility] INPATIENT Condition: Fair Discharge Details Chief Complaint: Fever Clinical Impression: Cellulitis, scrotum Primary Care Provider: Emily Bolanos ED Provider: Mayco Carrera [place] Meds and New Rx's Prescriptions: No Action dextroamphetamine-amphetamine 10 MG tablet 15 mg PO DAILY PRN PRNRF: 0 dextroamphetamine-amphetamine 30 MG capsule,extended release 24hr 30 mg PO DAILY AM RF: 0 escitalopram oxalate [Lexapro] 20 MG tablet 20 mg PO DAILY AM RF: 0 sulfamethoxazole-trimethoprim [Bactrim DS] 800-160 mg Tablet 1 tab PO BID RF: 0 Medical Decision Making Patient returns to ED tonight with high fever, tachycardia, tachypnea. Blood pressure is good. Pulse oximetry normal. Complaining of feeling pleuritic type chest pain and shortness of breath but also quite anxious. His EKG is sinus tachycardia at 115. He has normal intervals and axis. He has nonspecific rate related ST changes. IV will be established I am going to give 2 L of LR. We will check a lactic acid. Will get a portable chest x-ray but his lungs sound clear to me. I doubt that his chest pain is cardiac in nature nor do I suspect PE. Suspect more related to fever, tachycardia, anxiety. 2:00 - Lactic acid remains normal. Chest x-ray looks normal per my review. No beds upstairs currently due to staffing. Will be beds in morning. Patient was supposed to see Dr. Nichols again today after leaving AMA last night. Will hold in ED until morning, keep NPO and continue fluids. Morphine and Zofran ordered prn. 2:15 -patient saturations started to decline all the way down into the 80s. May be related to Ativan but he only got 0.5 mg. He remains awake and is breathing fine. He has not technically had a prolonged admission nor an actual surgery but have to consider pulmonary embolus with tachycardia, tachypnea, low saturations and pleuritic pain. CTA of the chest is ordered. 5:00 - chest x-ray has been read by radiology as bilateral interstitial changes. CTA is negative for pulmonary embolus. He does have evidence again of interstitial groundglass bilateral densities consistent with atypical infection, inflammation or pulmonary edema. His vital signs are better. Heart rate is in the 90s. Blood pressure is fine. 99% pulse ox on a couple liters O2. Not sure what to make of these lung findings. He is a smoker. Denies drug use. Does not have a cough. At this point we will redraw labs and check CBC, kidney function, BNP and troponin. 07:20 -patient's laboratory studies show that his white count has gone up slightly. His hemoglobin has gone down. His kidney function remains normal. His troponin is negative. His BNP is positive for age. He however feels better. His breathing is better. We have weaned him off of the oxygen. I did speak to Dr. Nichols who came in and saw him. Does not feel that he needs I&D at this point. Case discussed with hospitalist who admitted him yesterday. We have discussed the new findings. Patient at this point is no longer febrile, normal heart rate, decent room air saturations. Will be admitted to [facility] for further evaluation and management. Medical Records Medical records reviewed: Yes I reviewed the patient's medical records. Lab Data Lab results reviewed: Yes I reviewed the patient's lab results. ECG Data Attestation: I personally reviewed and interpreted this ECG (s) as follows: Prior ECG tracings: not available for review Interpretation: Sinus tachycardia at 116. Normal interval and axis. Nonspecific rate related ST changes HPI General Mode of arrival: EMS. Date/Time Provider Initiated Documentation: 07/23/18 01:54. Limitations to Documentation: no limitations. Information obtained by: patient and old records reviewed. HPI Narrative: Patient returns to ED after leaving the hospital AMA earlier this evening. He is being treated for MRSA cellulitis of the scrotum and groin. He had been admitted for IV antibiotics. He stated that he got freaked out when he got upstairs and then had a family problem that he had to attend to and left AMA. He called EMS tonight because he began to develop palpitations, shortness of breath, chest pain with deep breathing. He does have a history of anxiety but has never had it this bad. Continues to have drainage from the scrotum as well as discomfort in the groin area. He has no abdominal pain, vomiting. He states he has been shivering and has felt cold. Found to have a fever for EMS. Related Data Home Medications Medication Instructions Recorded Confirmed dextroamphetamine-amphetamine 15 mg PO DAILY PRN PRN 10/21/17 07/23/18 dextroamphetamine-amphetamine 30 mg PO DAILY AM 10/21/17 07/23/18 escitalopram oxalate [Lexapro] 20 mg PO DAILY AM 10/21/17 07/23/18 sulfamethoxazole-trimethoprim 1 tab PO BID 07/22/18 07/23/18 [Bactrim DS] Allergies Allergy/AdvReac Type Severity Reaction Status Date / Time Penicillins Allergy Intermediate throat Unverified 07/22/18 10:07 swelling and hives acetaminophen [From Tylenol] AdvReac Intermediate nausea Unverified 07/22/18 10:07 General Stated Complaint: Fever LIDA: 3 Review of Systems Review of Systems 01/12 Review of Systems completed and is negative except as stated above in HPI (Systems reviewed: Const, Eyes, ENT, Resp, CV, GI, , MSK, Skin, Neuro) [facility] Medical History ADHD (Acute) Substance abuse (Suspected) Social History Smoking/Tobacco Use Status: Current every day Alcohol Intake: never Drug use: Never Household members: spouse Housing: other Details: currently living at hotel Number of Children: 2 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 Normal pulse ox. Const: WDWN male who appears anxious but not in distress. HEENT: NC/AT. Normal facial exam. Eyes: Normal conjunctiva and sclera. Neck: Supple. Trachea midline. Lungs: Normal respiratory effort but tachypnic. Lungs are clear. Cor: RRR without murmur/gallop. Tachycardic. Good radial pulses. GI: Soft. NT/ND. No guarding or rebound. : Erythema and swelling to the left groin area with redness of the scrotum. Drainage from the upper left scrotal incision done by urology at [facility]. Open wound on right scrotum from spontaneous drainage. Neuro: A+O x 3. CN grossly in tact. Good strength and no focal deficit. Ext: No C/C/E. No deformity or tenderness. Skin: Warm and dry. Erythema as described above. Course Vital Signs Temperature 103.1 F H 07/23/18 01:20 Pulse 131 H 07/23/18 01:20 Respiratory Rate 20 07/23/18 01:20 Blood Pressure 110/75 07/23/18 01:20 Pulse Oximetry 96 07/23/18 01:20 Temperature 103.1 F H 07/23/18 01:20 Temperature Source Skin 07/23/18 01:20 Pulse 131 H 07/23/18 01:20 Respiratory Rate 20 07/23/18 01:20 Blood Pressure 110/75 07/23/18 01:20 Blood Pressure Position Sitting 07/23/18 01:20 Pulse Oximetry 96 07/23/18 01:20 Oxygen Delivery Method Room Air 07/23/18 01:20 Oxygen Flow Rate 0 07/23/18 01:20
[2018-07-23] MEDS: Lactated Ringers 2,000 ML 1000 ML IV (01:38)
[2018-07-23] MEDS: LORazepam 2 MG/ML VIAL 0.5 MG IVP (01:38)
[2018-07-23] MEDS: Ketorolac 15 MG/ML VIAL IVP (01:39)
[2018-07-23] MEDS: Normal Saline Flush 10 ML SYR IVP ×2 (01:39→02:55)
--- NOTE | 2018-07-23 01:39 | ED.GENADUL_ITS ---
Discharge Plan Disposition Patient Disposition: [facility] INPATIENT Condition: Fair Discharge Details Chief Complaint: Fever Clinical Impression: Cellulitis, scrotum Primary Care Provider: Emily Bolanos ED Provider: Mayco Carrera [place] Meds and New Rx's Prescriptions: No Action dextroamphetamine-amphetamine 10 MG tablet 15 mg PO DAILY PRN PRNRF: 0 dextroamphetamine-amphetamine 30 MG capsule,extended release 24hr 30 mg PO DAILY AM RF: 0 escitalopram oxalate [Lexapro] 20 MG tablet 20 mg PO DAILY AM RF: 0 sulfamethoxazole-trimethoprim [Bactrim DS] 800-160 mg Tablet 1 tab PO BID RF: 0 Medical Decision Making Patient returns to ED tonight with high fever, tachycardia, tachypnea. Blood pressure is good. Pulse oximetry normal. Complaining of feeling pleuritic type chest pain and shortness of breath but also quite anxious. His EKG is sinus tachycardia at 115. He has normal intervals and axis. He has nonspecific rate related ST changes. IV will be established I am going to give 2 L of LR. We will check a lactic acid. Will get a portable chest x-ray but his lungs sound clear to me. I doubt that his chest pain is cardiac in nature nor do I suspect PE. Suspect more related to fever, tachycardia, anxiety. 2:00 - Lactic acid remains normal. Chest x-ray looks normal per my review. No beds upstairs currently due to staffing. Will be beds in morning. Patient was supposed to see Dr. Nichols again today after leaving AMA last night. Will hold in ED until morning, keep NPO and continue fluids. Morphine and Zofran ordered prn. 2:15 -patient saturations started to decline all the way down into the 80s. May be related to Ativan but he only got 0.5 mg. He remains awake and is breathing fine. He has not technically had a prolonged admission nor an actual surgery but have to consider pulmonary embolus with tachycardia, tachypnea, low saturations and pleuritic pain. CTA of the chest is ordered. 5:00 - chest x-ray has been read by radiology as bilateral interstitial changes. CTA is negative for pulmonary embolus. He does have evidence again of interstitial groundglass bilateral densities consistent with atypical infection, inflammation or pulmonary edema. His vital signs are better. Heart rate is in the 90s. Blood pressure is fine. 99% pulse ox on a couple liters O2. Not sure what to make of these lung findings. He is a smoker. Denies drug use. Does not have a cough. At this point we will redraw labs and check CBC, kidney function, BNP and troponin. 07:20 -patient's laboratory studies show that his white count has gone up slightly. His hemoglobin has gone down. His kidney function remains normal. His troponin is negative. His BNP is positive for age. He however feels better. His breathing is better. We have weaned him off of the oxygen. I did speak to Dr. Nichols who came in and saw him. Does not feel that he needs I&D at this point. Case discussed with hospitalist who admitted him yesterday. We have discussed the new findings. Patient at this point is no longer febrile, normal heart rate, decent room air saturations. Will be admitted to [facility] for further evaluation and management. Medical Records Medical records reviewed: Yes I reviewed the patient's medical records. Lab Data Lab results reviewed: Yes I reviewed the patient's lab results. ECG Data Attestation: I personally reviewed and interpreted this ECG (s) as follows: Prior ECG tracings: not available for review Interpretation: Sinus tachycardia at 116. Normal interval and axis. Nonspecific rate related ST changes HPI General Mode of arrival: EMS . Date/Time Provider Initiated Documentation: 07/23/18 01:54 . Limitations to Documentation: no limitations . Information obtained by: patient and old records reviewed . HPI Narrative: Patient returns to ED after leaving the hospital AMA earlier this evening. He is being treated for MRSA cellulitis of the scrotum and groin. He had been admitted for IV antibiotics. He stated that he got freaked out when he got upstairs and then had a family problem that he had to attend to and left AMA. He called EMS tonight because he began to develop palpitations, shortness of breath, chest pain with deep breathing. He does have a history of anxiety but has never had it this bad. Continues to have drainage from the scrotum as well as discomfort in the groin area. He has no abdominal pain, vomiting. He states he has been shivering and has felt cold. Found to have a fever for EMS. Related Data Home Medications Medication Instructions Recorded Confirmed dextroamphetamine-amphetamine 15 mg PO DAILY PRN PRN 10/21/17 07/23/18 dextroamphetamine-amphetamine 30 mg PO DAILY AM 10/21/17 07/23/18 escitalopram oxalate [Lexapro] 20 mg PO DAILY AM 10/21/17 07/23/18 sulfamethoxazole-trimethoprim 1 tab PO BID 07/22/18 07/23/18 [Bactrim DS] Allergies Allergy/AdvReac Type Severity Reaction Status Date / Time Penicillins Allergy Intermediate throat Unverified 07/22/18 10:07 swelling and hives acetaminophen [From Tylenol] AdvReac Intermediate nausea Unverified 07/22/18 10:07 General Stated Complaint: Fever LIDA: 3 Review of Systems Review of Systems 01/12 Review of Systems completed and is negative except as stated above in HPI (Systems reviewed: Const, Eyes, ENT, Resp, CV, GI, , MSK, Skin, Neuro) [facility] Medical History ADHD (Acute) Substance abuse (Suspected) Social History Smoking/Tobacco Use Status: Current every day Alcohol Intake: never Drug use: Never Household members: spouse Housing: other Details: currently living at hotel Number of Children: 2 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 Normal pulse ox. Const: WDWN male who appears anxious but not in distress. HEENT: NC/AT. Normal facial exam. Eyes: Normal conjunctiva and sclera. Neck: Supple. Trachea midline. Lungs: Normal respiratory effort but tachypnic. Lungs are clear. Cor: RRR without murmur/gallop. Tachycardic. Good radial pulses. GI: Soft. NT/ND. No guarding or rebound. : Erythema and swelling to the left groin area with redness of the scrotum. Drainage from the upper left scrotal incision done by urology at [facility]. Open wound on right scrotum from spontaneous drainage. Neuro: A+O x 3. CN grossly in tact. Good strength and no focal deficit. Ext: No C/C/E. No deformity or tenderness. Skin: Warm and dry. Erythema as described above. Course Vital Signs Temperature 103.1 F H 07/23/18 01:20 Pulse 131 H 07/23/18 01:20 Respiratory Rate 20 07/23/18 01:20 Blood Pressure 110/75 07/23/18 01:20 Pulse Oximetry 96 07/23/18 01:20 Temperature 103.1 F H 07/23/18 01:20 Temperature Source Skin 07/23/18 01:20 Pulse 131 H 07/23/18 01:20 Respiratory Rate 20 07/23/18 01:20 Blood Pressure 110/75 07/23/18 01:20 Blood Pressure Position Sitting 07/23/18 01:20 Pulse Oximetry 96 07/23/18 01:20 Oxygen Delivery Method Room Air 07/23/18 01:20 Oxygen Flow Rate 0 07/23/18 01:20
[2018-07-23 01:45] LABS: Lactate-non-spesis 0.9 mmol/l (0.6-1.4)
--- NOTE | 2018-07-23 01:45 | DI.RAD_ITS ---
SYMPTOM/DIAGNOSIS: CHEST PAIN, FEVER PORTABLE AP CHEST: Bilateral regions of pulmonary infiltration are demonstrated. There is no evidence of a pneumothorax or pleural effusion. The heart is not enlarged. SUMMARY: There are minimal bilateral nonspecific areas of pulmonary infiltrate or edema.
--- NOTE | 2018-07-23 02:45 | DI.CT_ITS ---
SYMPTOM/DIAGNOSIS: TACHYCARDIA, LOW O2 SATS, PLEURITIC PAIN PE CHEST CT: CT angiography was performed with multi slice acquisition and multi planar and 3D reconstruction. The study was conducted according to the usual protocol with an intravenous administration of 82 cc's of Omnipaque 350. There is no evidence of pulmonary emboli. There is no evidence of an aortic aneurysm or dissection. Note is made of bilateral interstitial and ground glass pulmonary opacities, these findings nonspecific and could represent an infection or infiltrate or conceivably pulmonary edema. The heart is not enlarged. There is no pericardial effusion. There is no evidence of adenopathy. No acute bony abnormality is seen. SUMMARY: Nonspecific bilateral interstitial and ground glass opacities could represent an atypical infection, pulmonary infiltrate or even pulmonary edema.
[2018-07-23] MEDS: Omnipaque 350 MG/ML 100 ML BTL IJ (02:55)
--- NOTE | 2018-07-23 03:23 | DI.VRAD_ITS ---
EXAM: XR Chest, 1 View EXAM DATE/TIME: 07/23/2018 1:51 AM CLINICAL HISTORY: 38 years old, male; Type not specified; Patient HX: Chest pain not specified TECHNIQUE: Imaging protocol: XR of the chest, 1 view. COMPARISON: No relevant prior studies available. FINDINGS: Lungs: Minimal nonspecific bilateral nonspecific infiltrate or edema. Pleural space: Unremarkable. No pleural effusion. No pneumothorax. Heart/Mediastinum: Unremarkable. No cardiomegaly. Bones/joints: Unremarkable. IMPRESSION: Minimal nonspecific bilateral nonspecific infiltrate or edema. Dictated and Authenticated by: Akil Parra MD. Ordering:SHARON Mao MD
--- NOTE | 2018-07-23 03:24 | DI.VRAD_ITS ---
EXAM: CT Angiography Chest With Contrast EXAM DATE/TIME: 07/23/2018 2:16 AM CLINICAL HISTORY: 38 years old, male; Signs and symptoms; Other: Tachycardia, pleuritic pain, low o2 stats; Patient HX: Low o2 stats, tachycardia, pleuritic pain TECHNIQUE: Imaging protocol: Axial computed tomographic angiography images of the chest with intravenous contrast using CT angiography protocol. Coronal and sagittal reformatted images were created and reviewed. 3D rendering: MIP reconstructed images were created and reviewed. Radiation optimization: All CT scans at this facility use at least one of these dose optimization techniques: automated exposure control; mA and/or kV adjustment per patient size (includes targeted exams where dose is matched to clinical indication); or iterative reconstruction. Contrast material: OMNIPAQUE 350; Contrast volume: 82 ml; Contrast route: IV LAC; COMPARISON: CR XR PORTABLE CHEST AP 07/23/2018 1:42 AM FINDINGS: Pulmonary arteries: Normal. No pulmonary emboli. Aorta: Normal. No aortic aneurysm. No aortic dissection. Lungs: Nonspecific bilateral interstitial and groundglass opacities, could indicate atypical infection, inflammatory infiltrate, or even pulmonary edema. Pleural space: Normal. No pneumothorax. No pleural effusion. Heart: Normal. No cardiomegaly. No pericardial effusion. Lymph nodes: Unremarkable. No enlarged lymph nodes. Bones/joints: Unremarkable. No acute fracture. Soft tissues: Unremarkable. IMPRESSION: Nonspecific bilateral interstitial and groundglass opacities, could indicate atypical infection, inflammatory infiltrate, or even pulmonary edema. Dictated and Authenticated by: Akil Parra MD. Ordering:SHARON Mao MD
[2018-07-23] MEDS: Lactated Ringers 1,000 ML 125 ML IV (03:46)
[2018-07-23 05:14] LABS: Abs Immature Grans 0.03 k/cumm (0.0-0.09); Absolute Basophil Count 0.04 k/cumm (0.0-0.2); Absolute Eosinophil Count 0.08 k/cumm (0.0-0.7); Absolute Lymphocyte Count 0.76 k/cumm (1.2-3.4); Absolute Monocyte Count 0.92 k/cumm (0.11-0.7); Absolute Neutrophil Count 9.97 k/cumm (1.2-6.7); Basophils % 0.3; Eosinophils % 0.7; HCT 33.5 % (40.0-50.0); HGB 11.2 g/dL (13.5-17.5); Immature Grans % 0.3; Lymphocytes % 6.4; Mean Corp. HGB Concentration 33.4 g/dL (32.0-36.0); Mean Corpuscular Hemoglobin 30.5 pg (27.0-33.0); Mean Corpuscular Volume 91.3 fL (80-95); Mean Platelet Volume 9.7 fL (8.0-11.0); Monocytes % 7.8; Neutrophils % 84.5; Platelet Count 174 x1000/uL (130-400); RBC 3.67 m/cumm (4.50-6.00); RBC Distribution Width 13.1 % (11.8-14.1)
[2018-07-23 05:33] LABS: Anion Gap 8.6 mmol/L (3-11); BUN 8 mg/dL (7-18); CO2 25.4 mmol/L (21.0-32.0); CREATININE 0.95 mg/dL (0.70-1.30); Calcium 8.1 mg/dL (8.5-10.1); Chloride 103 mmol/L (98-107); Glucose 99 mg/dL (70-100); NT-proBNP 466 pg/mL; Potassium 4.1 mmol/L (3.5-5.1); Sodium 137 mmol/L (136-145); Troponin I 0.02 ng/mL (0.00-0.06)
--- NOTE | 2018-07-23 07:12 | W.PM.PROGNOT ---
Date of Service Date of service: 07/23/18 Time of Service: 07:12 Assessment and Plan (1) Cellulitis: Current visit: No Status: Acute Clinically, his scrotal and groin cellulitis are actually improving. There is nothing to suggest that he will need a debridement procedure at this point. I would simply recommend continuing antibiotics with specific coverage for MRSA. I have no idea what to make of his presenting symptoms overnight. On yesterday's consult I had put in his medical history suspected substance abuse. This documentation is simply based on a prior DUI history, not on any documented addiction. The patient denies illicit IV drug use. We should still be mindful that potentially this is a patient that may show some alcohol withdrawal symptoms if he does stay in the hospital. Subjective Interval history since last seen: The patient was admitted yesterday but signed out AGAINST MEDICAL ADVICE. He returned to the ER overnight with pleuritic type chest pain, tachycardia, hypotension and fevers. He was reevaluated with a CT of the chest with no specific explanation for his new symptoms. He tells me he has a bit less pain in the scrotal and groin area. He has no drainage from the inguinal area. Exam Narrative Exam Narrative: He does not appear toxic at this point He actually has much less erythema in the scrotum and groin compared to yesterday. The testes are normal. The scrotal skin is still a bit edematous. The inguinal area is firm but not fluctuant. The inguinal area is much less tender compared to yesterday. Objective Objective Clinical Data: Abnormal lab results 07/23/18 07/23/18 Range/Units 05:07 05:07 WBC 11.80 H (4.4-10.8) k/cumm RBC 3.67 L (4.50-6.00) m/cumm Hgb 11.2 L D (13.5-17.5) g/dL Hct 33.5 L (40.0-50.0) % Absolute Neutrophils 9.97 H (1.2-6.7) k/cumm Absolute Lymphocytes 0.76 L (1.2-3.4) k/cumm Absolute Monocytes 0.92 H (0.11-0.7) k/cumm Calcium 8.1 L (8.5-10.1) mg/dL NT-Pro-B Natriuret Pep 466 H ( - 299) pg/mL Vital Signs Temperature 36.7 C 07/23/18 06:11 Temperature Source Tympanic 07/23/18 06:11 Pulse 74 07/23/18 06:46 Pulse 76 07/23/18 06:50 Respiratory Rate 19 07/23/18 06:50 Respiratory Effort Non-Labored 07/23/18 03:55 Respiratory Depth Normal 07/23/18 03:55 Respiratory Pattern Normal 07/23/18 03:55 Blood Pressure 102/59 L 07/23/18 06:46 Blood Pressure Mean 70 07/23/18 06:46 Blood Pressure Position Sitting 07/23/18 01:20 Pulse Oximetry 93 L 07/23/18 06:50 Oxygen Delivery Method Nasal Cannula 07/23/18 05:55 Oxygen Flow Rate 1.5 07/23/18 05:55 Pain Level 5 07/23/18 03:50 Intake & Output 07/22/18 07/22/18 07/23/18 11:59 23:59 11:59 Intake Total 1999 Output Total 825 / 825 Balance 1175 / 1175 Weight 86.183 kg Intake: IV 1999 Output: Urine 825 / 825 Other: Urine Color Yellow Urine Appearance Clear Urine Odor None Voiding Methods Urinal Laboratory Results WBC 11.80 k/cumm (4.4-10.8) H 07/23/18 05:07 RBC 3.67 m/cumm (4.50-6.00) L 07/23/18 05:07 Hgb 11.2 g/dL (13.5-17.5) L D 07/23/18 05:07 Hct 33.5 % (40.0-50.0) L 07/23/18 05:07 MCV 91.3 fL (80-95) 07/23/18 05:07 MCH 30.5 pg (27.0-33.0) 07/23/18 05:07 MCHC 33.4 g/dL (32.0-36.0) 07/23/18 05:07 RDW 13.1 % (11.8-14.1) 07/23/18 05:07 Plt Count 174 x1000/uL (130-400) 07/23/18 05:07 MPV 9.7 fL (8.0-11.0) 07/23/18 05:07 Immature Gran % 0.3 07/23/18 05:07 Neutrophils % 84.5 07/23/18 05:07 Lymphocytes % 6.4 07/23/18 05:07 Monocytes % 7.8 07/23/18 05:07 Eosinophils % 0.7 07/23/18 05:07 Basophils % 0.3 07/23/18 05:07 Absolute Neutrophils 9.97 k/cumm (1.2-6.7) H 07/23/18 05:07 Absolute Lymphocytes 0.76 k/cumm (1.2-3.4) L 07/23/18 05:07 Absolute Monocytes 0.92 k/cumm (0.11-0.7) H 07/23/18 05:07 Absolute Eosinophils 0.08 k/cumm (0.0-0.7) 07/23/18 05:07 Absolute Basophils 0.04 k/cumm (0.0-0.2) 07/23/18 05:07 Sodium 137 mmol/L (136-145) 07/23/18 05:07 Potassium 4.1 mmol/L (3.5-5.1) 07/23/18 05:07 Chloride 103 mmol/L (98-107) 07/23/18 05:07 Carbon Dioxide 25.4 mmol/L (21.0-32.0) 07/23/18 05:07 Anion Gap 8.6 mmol/L (3-11) 07/23/18 05:07 BUN 8 mg/dL (7-18) 07/23/18 05:07 Creatinine 0.95 mg/dL (0.70-1.30) 07/23/18 05:07 Estimated GFR/1.73 m2 >= 60.00 (mL/min/1.73m2) 07/23/18 05:07 Glucose 99 mg/dL (70-100) 07/23/18 05:07 Lactate 0.9 mmol/l (0.6-1.4) 07/23/18 01:40 Calcium 8.1 mg/dL (8.5-10.1) L 07/23/18 05:07 Troponin I 0.02 ng/mL (0.00-0.06) 07/23/18 05:07 NT-Pro-B Natriuret Pep 466 pg/mL (-299) H 07/23/18 05:07
[2018-07-23 08:11] LABS: Iron 11 ug/dL (50-175); Total Iron Binding Capacity 155 ug/dL (250-450); Transferrin Sat 7 % (20-55)
[2018-07-23 08:27] LABS: Ferritin 270 ng/mL (8-388)
[2018-07-23] MEDS: Normal Saline 1,000 ML 125 ML IV ×2 (08:32→21:15)
[2018-07-23 08:38] LABS: C-Reactive Protein 5.33 mg/dL (0.0-0.3)
--- NOTE | 2018-07-23 18:00 | NUR.NOTE ---
Nursing Note: patient rings about the change of shift he is upset the area on the left side of the testicle had opened up and a moderate amount of kaur exudate drained from the area. patient is in pain which is covered with MS and reassured that it is probalby better that the wound is open and draining. i spoke to Dr Shaikh, she echoed that sentiment
--- NOTE | 2018-07-23 18:51 | NUR.NOTE ---
Nursing Note: patient stated morphine is not covering his pain. he stated that tylenol makes him vomit and he will adamantly not take it, ccc to page hospitalist. will advise next shift to look for orders
--- NOTE | 2018-07-23 19:34 | W.PM.HP.N ---
Date of service: 07/23/18 Time of Service: 07:15 Assessment and Plan (1) Sepsis: Current visit: Yes Status: Acute Due to scrotal cellulitis, known to be due to MRSA based on wound cx from 07/20/18. Continue vancomycin and weight based MIVF. Blood cx from 07/22/18 show no growth to date. Trend CRP (2) Cellulitis of scrotum: Current visit: Yes Status: Acute As above (3) Ground glass opacity present on imaging of lung: Current visit: Yes Status: Acute it is possible that the patient was transiently fluid overloaded, but I cannot rule out interstitial lung disease or pneumonia. For now, continue vancomycin and monitor respiratory status. Will require f/u CXR. On room air. (4) Hypoxia: Current visit: Yes Status: Resolved I suspect that the patient was transiently fluid overloaded. Read discussion above. Consider getting an echo. (5) Anemia: Current visit: Yes Status: Chronic Checking anemia studies. (6) ADHD: Current visit: Yes Status: Acute continue home meds (7) DVT prophylaxis: Current visit: No Status: Acute TEDs and SCD's (patient is ambulatory and under 40 years old) (8) Discharge planning issues: Current visit: No Status: Acute Full code History of Present Illness Chief Complaint: scrotal pain, swelling, rigors Narrative: Mr Madrid is a 38 year old male, who was admitted to our service yesterday with scrotal cellulitis due to MRSA, but unfortunately left against medical advice, who presented to [facility] ED again today with fever, tachycardia and complaints of shortness of breath. For his history prior to today's admission, please see H&P from 07/22/18 (yesterday) by Urvashi Alvarez. When he arrived to the ED today, his oxygen saturations on room air were in the 90's. He was give a bolus of 2L of IVF. However, at 2:15 am, he became hypoxic down to the 80's. This warranted a CTA of the chest to r/o a PE - this was negative for a PE, but did show interstitial ground-glass like opacities bilaterally. Clinically, the patient was not in CHF or exhibit signs of pneumonia. He was evaluated again by Dr Nichols, who thought that there was improvement in the appearance of scrotal cellulitis and that no surgical intervention would be indicated today. Meanwhile, the patient's oxygen saturations normalized, and he was able to be transitioned to room air without any specific intervention. We were asked to admit the patient for further care. The patient himself states that he now feels a lot better, but did have rigors and shortness of breath at home. Review of Systems Review of Systems 12 systems reviewed. Pertinent positives and negatives are as per HPI. The patient also described that last night both his hands and feet were going numb, but now he no longer feels that. 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 Do you feel safe at home: Yes Do you feel safe in your relationship?: Yes Meds Home Medications Medication Instructions Recorded Confirmed Type dextroamphetamine-amphetamine 15 mg PO DAILY PRN PRN 10/21/17 07/23/18 History dextroamphetamine-amphetamine 30 mg PO DAILY AM 10/21/17 07/23/18 History escitalopram oxalate [Lexapro] 20 mg PO DAILY AM 10/21/17 07/23/18 History sulfamethoxazole-trimethoprim 1 tab PO BID 07/22/18 07/23/18 History [Bactrim DS] Allergies Allergy/AdvReac Type Severity Reaction Status Date / Time Penicillins Allergy Intermediate throat Unverified 07/22/18 10:07 swelling and hives acetaminophen [From Tylenol] AdvReac Intermediate nausea Unverified 07/22/18 10:07 Exam Narrative Exam Narrative: General: Very pleasant male, laying comfortably in bed Neurological: A&Ox3, no focal deficits Psychiatric: anxious; otherwise, appropriate speech pattern/content as well as affect Skin: scrotum is edematous and erythematous HEENT: atraumatic, normocephalic, EOMI, MMM, clear oropharynx, no submandibular or cervical lymphadenopathy, no goiter, or JVD Cardiovascular: RRR, no m/r/g Lungs: CTAB Gastrointestinal: abdomen soft, nontender, nondistended Genitourinary: erythema/swelling of the scrotum with involvement of suprapubic area Extremities: no e/c/c BLE's, 2+ pedal pulses B Results Imaging Additional studies: CXR 07/23/18: There are minimal bilateral nonspecific areas of pulmonary infiltrate or edema. CTA chest 07/23/18: Nonspecific bilateral interstitial and ground glass opacities could represent an atypical infection, pulmonary infiltrate or even pulmonary edema. Labs : 07/23/18 05:07 07/23/18 05:07 Laboratory Results - last 24 hr 07/23/18 07/23/18 07/23/18 01:40 05:07 05:07 WBC 11.80 H RBC 3.67 L Hgb 11.2 L D Hct 33.5 L MCV 91.3 MCH 30.5 MCHC 33.4 RDW 13.1 Plt Count 174 MPV 9.7 Immature Gran % 0.3 Neutrophils % 84.5 Lymphocytes % 6.4 Monocytes % 7.8 Eosinophils % 0.7 Basophils % 0.3 Absolute Neutrophils 9.97 H Absolute Lymphocytes 0.76 L Absolute Monocytes 0.92 H Absolute Eosinophils 0.08 Absolute Basophils 0.04 Sodium 137 Potassium 4.1 Chloride 103 Carbon Dioxide 25.4 Anion Gap 8.6 BUN 8 Creatinine 0.95 Estimated GFR/1.73 m2 >= 60.00 Glucose 99 Lactate 0.9 Calcium 8.1 L Iron TIBC Transferrin % Sat Ferritin 270 Troponin I 0.02 C-Reactive Protein 5.33 H NT-Pro-B Natriuret Pep 466 H 07/23/18 05:07 WBC RBC Hgb Hct MCV MCH MCHC RDW Plt Count MPV Immature Gran % Neutrophils % Lymphocytes % Monocytes % Eosinophils % Basophils % Absolute Neutrophils Absolute Lymphocytes Absolute Monocytes Absolute Eosinophils Absolute Basophils Sodium Potassium Chloride Carbon Dioxide Anion Gap BUN Creatinine Estimated GFR/1.73 m2 Glucose Lactate Calcium Iron 11 L TIBC 155 L Transferrin % Sat 7 L Ferritin Troponin I C-Reactive Protein NT-Pro-B Natriuret Pep Last Vital Signs Temp 37.8 C H 07/23/18 15:40 Pulse 85 07/23/18 15:40 Resp 20 07/23/18 15:40 BP 121/74 07/23/18 15:40 Pulse Ox 99 07/23/18 15:40
[2018-07-23] MEDS: Ketorolac 30 MG/ML VIAL IVP (20:42)
[2018-07-24 00:18] VITALS: BP 121/75; PULSE 89; RESP 17; TEMP 37.1; O2SAT 99
[2018-07-24] MEDS: Normal Saline 1,000 ML 125 ML IV (02:50)
[2018-07-24 03:45] VITALS: BP 110/68; PULSE 60; RESP 16; TEMP 36.7; O2SAT 99
[2018-07-24 07:08] LABS: Absolute Basophil Count 0.03 k/cumm (0.0-0.2); Absolute Eosinophil Count 0.17 k/cumm (0.0-0.7); Absolute Lymphocyte Count 1.49 k/cumm (1.2-3.4); Absolute Monocyte Count 0.47 k/cumm (0.11-0.7); Absolute Neutrophil Count 1.54 k/cumm (1.2-6.7); Basophils % 0.8; Eosinophils % 4.6; HCT 32.3 % (40.0-50.0); HGB 10.6 g/dL (13.5-17.5); Lymphocytes % 40.3; Mean Corp. HGB Concentration 32.8 g/dL (32.0-36.0); Mean Corpuscular Hemoglobin 30.5 pg (27.0-33.0); Mean Corpuscular Volume 92.8 fL (80-95); Mean Platelet Volume 10.2 fL (8.0-11.0); Monocytes % 12.7; Neutrophils % 41.6; Platelet Count 156 x1000/uL (130-400); RBC 3.48 m/cumm (4.50-6.00); RBC Distribution Width 13.1 % (11.8-14.1)
[2018-07-24 07:20] LABS: Anion Gap 5.8 mmol/L (3-11); BUN 10 mg/dL (7-18); C-Reactive Protein 4.69 mg/dL (0.0-0.3); CO2 26.2 mmol/L (21.0-32.0); CREATININE 0.82 mg/dL (0.70-1.30); Chloride 107 mmol/L (98-107); Glucose 87 mg/dL (70-100); Magnesium 1.6 mg/dL (1.8-2.4); Potassium 4.2 mmol/L (3.5-5.1); Sodium 139 mmol/L (136-145)
[2018-07-24 07:27] LABS: Vancomycin, Trough 24.6 ug/mL (10.0-20.0)
[2018-07-24 08:24] VITALS: BP 114/83; PULSE 63; RESP 20; TEMP 35.5; O2SAT 95
[2018-07-24] MEDS: Escitalopram 20 MG TAB PO (09:00)
--- NOTE | 2018-07-24 10:17 | PDOC.CMIN ---
Care Management Initial Assess REASON FOR HOSPITALIZATION:: sepsis due to scrotal cellulitis, hypoxia. PAST MEDICAL HISTORY/PAST SURGICAL HISTORY:: Medical: ADHD, suspected SA. Surgical: none. PREVIOUS FUNCTIONAL STATUS/SOCIAL/FAMILY SUPPORTS:: He has been living with his in a room at the [facility] as they are homeless. They have recently had their parental rights to their 2 children terminated and the children are in state custody. Since admission, he has been trying to reach his but she has not answered his calls. His cell phone is at the hotel with his and he does not know contact numbers for friends he would call. He requested a computer to use in his room so he could make contacts via e-mail. States his relationship with his is not great so he may not be able to return to the hotel. He needs to be able to speak with her to determine this. CURRENT FUNCTIONAL STATUS:: He is able to get up in the room independently. Able to engage in discussion re plans. ADVANCE DIRECTIVES:: None-declines information. Has patient been provided with information about the portal?: Yes Did the patient sign up for the portal?: No (already done) CODE STATUS:: Full Code INSURANCE COVERAGE / FINANCIAL ISSUES:: Medicaid CURRENT HOME/COMMUNITY SERVICES/EQUIPMENT:: Housing assist through [facility]. No equipment used. PRIMARY CARE PHYSICIAN:: Emily Bolanos NP POTENTIAL DISCHARGE NEEDS:: Will need follow-up with PCP as directed. Patient states he can find friend to stay with if needed. PATIENT/FAMILY EDUCATION NEEDS:: Review d/c instructions re meds and activity levels. Review Ask me Now questions. ANTICIPATED BARRIERS TO DISCHARGE:: none identified TRANSPORTATION:: via car with or friend PLAN:: d/c home as per MD with OP PCP appt.
[2018-07-24 10:37] LABS: HIV-1/2 Ag & Ab Screen Negative (NEGAT)
[2018-07-24 12:00] VITALS: BP 146/75; PULSE 84; RESP 19; TEMP 37.2; O2SAT 99
--- NOTE | 2018-07-24 13:23 | W.PM.PROGNOT ---
Date of Service Date of service: 07/24/18 Time of Service: 13:23 Assessment and Plan (1) Cellulitis of scrotum: Current visit: Yes Status: Acute Clinically, he is improving rather dramatically. There is no reason to consider a surgical drainage. I would be fine if he goes home with oral antibiotics. He should probably come into our office next week for a wound check. He was sent home from [facility] with Bactrim. It would be quite reasonable to continue with that medication for now Subjective Interval history since last seen: His pain level has decreased markedly. He has no scrotal drainage. Exam Narrative Exam Narrative: He looks quite comfortable. He is able to ambulate with no difficulty. His vital signs are documented elsewhere in the chart. The scrotum just shows mild edema but no fluctuance or crepitations. The left inguinal area has decreased in size and erythema. The area is nontender and not fluctuant. Objective Objective Clinical Data: Abnormal lab results 07/24/18 07/24/18 07/24/18 Range/Units 06:50 06:50 06:50 WBC 3.70 L D (4.4-10.8) k/cumm RBC 3.48 L (4.50-6.00) m/cumm Hgb 10.6 L (13.5-17.5) g/dL Hct 32.3 L (40.0-50.0) % Calcium 8.0 L (8.5-10.1) mg/dL Magnesium 1.6 L (1.8-2.4) mg/dL C-Reactive Protein 4.69 H (0.0-0.3) mg/dL Vancomycin Trough 24.6 H* (10.0-20.0) ug/mL Vital Signs Temperature 35.5 C L 07/24/18 08:24 Temperature Source Tympanic 07/24/18 08:24 Pulse 63 07/24/18 08:24 Pulse Rhythm Regular 07/24/18 09:00 Pulse 76 07/23/18 06:50 Respiratory Rate 20 07/24/18 08:24 Respiratory Effort 07/24/18 09:00 Respiratory Depth Normal 07/24/18 09:00 Respiratory Pattern Normal 07/24/18 09:00 Blood Pressure 114/83 07/24/18 08:24 Blood Pressure Mean 70 07/23/18 06:46 Blood Pressure Position Sitting 07/23/18 01:20 Pulse Oximetry 95 07/24/18 08:24 Oxygen Delivery Method Room Air 07/24/18 08:24 Oxygen Flow Rate 0 07/24/18 08:24 Pain Level 0 07/24/18 03:45 Comment 07/24/18 03:45 Intake & Output 07/23/18 07/24/18 07/24/18 23:59 11:59 23:59 Intake Total 970 / 3222.083 977.917 / 977.917 Output Total 2175 / 3000 1250 / 1250 Balance -1205 / 222.083 -272.083 / -272.083 Intake: IV 250 / 2502.083 947.917 / 947.917 Oral 720 / 720 30 / 30 Output: Urine 2175 / 3000 1250 / 1250 Other: Urine Color Yellow Yellow Urine Appearance Clear Clear Urine Odor None Voiding Methods Toilet Urinal Laboratory Results WBC 3.70 k/cumm (4.4-10.8) L D 07/24/18 06:50 RBC 3.48 m/cumm (4.50-6.00) L 07/24/18 06:50 Hgb 10.6 g/dL (13.5-17.5) L 07/24/18 06:50 Hct 32.3 % (40.0-50.0) L 07/24/18 06:50 MCV 92.8 fL (80-95) 07/24/18 06:50 MCH 30.5 pg (27.0-33.0) 07/24/18 06:50 MCHC 32.8 g/dL (32.0-36.0) 07/24/18 06:50 RDW 13.1 % (11.8-14.1) 07/24/18 06:50 Plt Count 156 x1000/uL (130-400) 07/24/18 06:50 MPV 10.2 fL (8.0-11.0) 07/24/18 06:50 Immature Gran % 0.0 07/24/18 06:50 Neutrophils % 41.6 07/24/18 06:50 Lymphocytes % 40.3 07/24/18 06:50 Monocytes % 12.7 07/24/18 06:50 Eosinophils % 4.6 07/24/18 06:50 Basophils % 0.8 07/24/18 06:50 Absolute Neutrophils 1.54 k/cumm (1.2-6.7) 07/24/18 06:50 Absolute Lymphocytes 1.49 k/cumm (1.2-3.4) 07/24/18 06:50 Absolute Monocytes 0.47 k/cumm (0.11-0.7) 07/24/18 06:50 Absolute Eosinophils 0.17 k/cumm (0.0-0.7) 07/24/18 06:50 Absolute Basophils 0.03 k/cumm (0.0-0.2) 07/24/18 06:50 Sodium 139 mmol/L (136-145) 07/24/18 06:50 Potassium 4.2 mmol/L (3.5-5.1) 07/24/18 06:50 Chloride 107 mmol/L (98-107) 07/24/18 06:50 Carbon Dioxide 26.2 mmol/L (21.0-32.0) 07/24/18 06:50 Anion Gap 5.8 mmol/L (3-11) 07/24/18 06:50 BUN 10 mg/dL (7-18) 07/24/18 06:50 Creatinine 0.82 mg/dL (0.70-1.30) 07/24/18 06:50 Estimated GFR/1.73 m2 >= 60.00 (mL/min/1.73m2) 07/24/18 06:50 Glucose 87 mg/dL (70-100) 07/24/18 06:50 Lactate 0.9 mmol/l (0.6-1.4) 07/23/18 01:40 Calcium 8.0 mg/dL (8.5-10.1) L 07/24/18 06:50 Magnesium 1.6 mg/dL (1.8-2.4) L 07/24/18 06:50 Iron 11 ug/dL (50-175) L 07/23/18 05:07 TIBC 155 ug/dL (250-450) L 07/23/18 05:07 Transferrin % Sat 7 % (20-55) L 07/23/18 05:07 Ferritin 270 ng/mL (8-388) 07/23/18 05:07 Troponin I 0.02 ng/mL (0.00-0.06) 07/23/18 05:07 C-Reactive Protein 4.69 mg/dL (0.0-0.3) H 07/24/18 06:50 NT-Pro-B Natriuret Pep 466 pg/mL (-299) H 07/23/18 05:07 Vancomycin Trough 24.6 ug/mL (10.0-20.0) H* 07/24/18 06:50
--- NOTE | 2018-07-24 13:31 | INITIAL_ITS ---
Care Management Initial Assess REASON FOR HOSPITALIZATION:: sepsis due to scrotal cellulitis, hypoxia. PAST MEDICAL HISTORY/PAST SURGICAL HISTORY:: Medical: ADHD, suspected SA. Surgical: none. PREVIOUS FUNCTIONAL STATUS/SOCIAL/FAMILY SUPPORTS:: He has been living with his in a room at the [facility] as they are homeless. They have recently had their parental rights to their 2 children terminated and the children are in state custody. Since admission, he has been trying to reach his but she has not answered his calls. His cell phone is at the hotel with his and he does not know contact numbers for friends he would call. He requested a computer to use in his room so he could make contacts via e-mail. States his relationship with his is not great so he may not be able to return to the hotel. He needs to be able to speak with her to determine this. CURRENT FUNCTIONAL STATUS:: He is able to get up in the room independently. Able to engage in discussion re plans. ADVANCE DIRECTIVES:: None-declines information. Has patient been provided with information about the portal?: Yes Did the patient sign up for the portal?: No (already done) CODE STATUS:: Full Code INSURANCE COVERAGE / FINANCIAL ISSUES:: Medicaid CURRENT HOME/COMMUNITY SERVICES/EQUIPMENT:: Housing assist through [employer]. No equipment used. PRIMARY CARE PHYSICIAN:: Emily Bolanos NP POTENTIAL DISCHARGE NEEDS:: Will need follow-up with PCP as directed. Patient states he can find friend to stay with if needed. PATIENT/FAMILY EDUCATION NEEDS:: Review d/c instructions re meds and activity levels. Review Ask me Now questions. ANTICIPATED BARRIERS TO DISCHARGE:: none identified TRANSPORTATION:: via car with or friend PLAN:: d/c home as per MD with OP PCP appt.
--- NOTE | 2018-07-24 13:47 | NUR.NOTE ---
Nursing Note: Informed by Damion Murcia that Patient Francisco Javier Madrid went down the elevator at 1340. I went out side the building to see if he would come in. Patient stated he was not coming back in side. Patient stated he needed to get where he was going.Patient got on the red [employer] bus and left the property. HERMINIA De La Rosa notified.
--- NOTE | 2018-07-24 13:48 | DSE_ITS ---
Date of service: 07/24/18 Time of Service: 13:46 DS: Diagnosis Discharge Diagnosis (1) Cellulitis of scrotum: Status: Acute Discharge Plan Disposition Patient Disposition: AGAINST MEDICAL ADVICE Condition: Fair Discharge Details Reason For Visit: SCROTAL CELLULITIS, SEPSIS Admit Date/Time: 07/23/18 07:22 Admit Provider: Dea Shaikh Attending Provider: Dea Shaikh Primary Care Provider: Emily Bolanos [facility] Course Hospital Course: Francisco Javier Madrid is a 38 year old male with a history of ADHD who was being treated with IV Vancomycin for a scrotal abscess. He was followed by Dr. Nichols, Urology, as well. He was originally admitted to the Med/surg floor on 07/22/18 and left AMA shortly after his admission. He presented back to the hospital early the following morning with fevers, tachycardia and tachypnea. In the ED, he was noted to desaturate down into the 80s. He was referred for Chest x-ray which was read as bilateral interstitial changes. CT chest was negative for PE, however, he did have evidence again of interstitial groundglass bilateral densities consistent with atypical infection, inflammation or pulmonary edema. His oxygen saturation improved spontaneously. He did not have a cough. HIV testing was ordered. He was admitted again on 07/23/18 to the Med/surg floor and received IV Vancomycin with improvement in his scrotal cellulitis. He was seen by Dr. Nichols who also notes improvement and felt that the patient could safely be discharged home with oral antibiotics and follow up in the urology clinic next week. However, the patient left against medical advice before he could be properly discharged with antibiotics and follow up appointments in place. Of note, prior to his first admission at [facility], he was seen in the ED and sent [place] [facility] [place] he underwent an I&D of his scrotom on the left side. He was discharged home with Bactrim at that time. Care Management is working to contact the patient to ensure that he has and will take Bactrim and to set him up with follow up. It is unclear if this will be possible as the patient lives in a hotel and is difficult to contact by phone. Home Meds and New Rx's Prescriptions: No Action dextroamphetamine-amphetamine 10 MG tablet 15 mg PO DAILY PRN PRNRF: 0 dextroamphetamine-amphetamine 30 MG capsule,extended release 24hr 30 mg PO DAILY AM RF: 0 escitalopram oxalate [Lexapro] 20 MG tablet 20 mg PO DAILY AM RF: 0 sulfamethoxazole-trimethoprim [Bactrim DS] 800-160 mg Tablet 1 tab PO BID RF: 0 Exam Narrative Exam Narrative: General: pleasant and cooperative, awake and alert, in no acute distress. Answers questions appropriately. HEENT: poor dentition, pupils equal and round, mucous membranes moist, EOMI. Neck: supple, no JVD. Cardiovascular: heart has regular rate and rhythm, no murmur appreciated. Respiratory: respirations even and unlabored, lung sounds clear bilaterally. GI: abdomen soft, nontender, nondistended. : Scrotal edema and erythema improved dramatically, mild erythema and slight edema of scrotum, not extending into left leg or lower abdomen. Continues to have wound on right-side of scrotum, approximately 1 cm, healing, no active drainage. Left-side with 1 cm long opening that appears to be side of I&D, beginning to close, no active drainage. Extremities: well perfused without clubbing, cyanosis or edema. DS: Data Vitals/I&O Vitals and I&O: Vital Signs Temperature 35.5 C L 07/24/18 08:24 Temperature Source Tympanic 07/24/18 08:24 Pulse 63 07/24/18 08:24 Pulse Rhythm Regular 07/24/18 09:00 Pulse 76 07/23/18 06:50 Respiratory Rate 20 07/24/18 08:24 Respiratory Effort 07/24/18 09:00 Respiratory Depth Normal 07/24/18 09:00 Respiratory Pattern Normal 07/24/18 09:00 Blood Pressure 114/83 07/24/18 08:24 Blood Pressure Mean 70 07/23/18 06:46 Blood Pressure Position Sitting 07/23/18 01:20 Pulse Oximetry 95 07/24/18 08:24 Oxygen Delivery Method Room Air 07/24/18 08:24 Oxygen Flow Rate 0 07/24/18 08:24 Pain Level 0 07/24/18 03:45 Comment 07/24/18 03:45 Intake & Output 07/23/18 07/24/18 07/24/18 23:59 11:59 23:59 Intake Total 970 / 3222.083 977.917 / 977.917 Output Total 2175 / 3000 1250 / 1250 Balance -1205 / 222.083 -272.083 / -272.083 Intake: IV 250 / 2502.083 947.917 / 947.917 Oral 720 / 720 Output: Urine 2175 / 3000 1250 / 1250 Other: Urine Color Yellow Yellow Urine Appearance Clear Clear Urine Odor None Voiding Methods Toilet Urinal Completed studies during hospitalization [Text1]: 07/23/18: PORTABLE AP CHEST: Bilateral regions of pulmonary infiltration are demonstrated. There is no evidence of a pneumothorax or pleural effusion. The heart is not enlarged. SUMMARY: There are minimal bilateral nonspecific areas of pulmonary infiltrate or edema. PE CHEST CT: CT angiography was performed with multi slice acquisition and multi planar and 3D reconstruction. The study was conducted according to the usual protocol with an intravenous administration of 82 cc's of Omnipaque 350. There is no evidence of pulmonary emboli. There is no evidence of an aortic aneurysm or dissection. Note is made of bilateral interstitial and ground glass pulmonary opacities, these findings nonspecific and could represent an infection or infiltrate or conceivably pulmonary edema. The heart is not enlarged. There is no pericardial effusion. There is no evidence of adenopathy. No acute bony abnormality is seen. SUMMARY: Nonspecific bilateral interstitial and ground glass opacities could represent an atypical infection, pulmonary infiltrate or even pulmonary edema. Labs on day of discharge: Labs from last 24 hours 07/24/18 07/24/18 07/24/18 06:50 06:50 06:50 WBC 3.70 L D RBC 3.48 L Hgb 10.6 L Hct 32.3 L MCV 92.8 MCH 30.5 MCHC 32.8 RDW 13.1 Plt Count 156 MPV 10.2 Immature Gran % 0.0 Neutrophils % 41.6 Lymphocytes % 40.3 Monocytes % 12.7 Eosinophils % 4.6 Basophils % 0.8 Absolute Neutrophils 1.54 Absolute Lymphocytes 1.49 Absolute Monocytes 0.47 Absolute Eosinophils 0.17 Absolute Basophils 0.03 Sodium 139 Potassium 4.2 Chloride 107 Carbon Dioxide 26.2 Anion Gap 5.8 BUN 10 Creatinine 0.82 Estimated GFR/1.73 m2 >= 60.00 Glucose 87 Calcium 8.0 L Magnesium 1.6 L C-Reactive Protein 4.69 H Vancomycin Trough 24.6 H* PFSH Medical History Cellulitis of scrotum (Acute) ADHD (Acute) Substance abuse (Suspected) Social History Smoking/Tobacco Use Status: Current every day Alcohol Intake: never Drug use: Never Household members: spouse Housing: other Details: currently living at hotel Number of Children: 2 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
--- NOTE | 2018-07-24 13:51 | NUR.NOTE ---
Addendum entered by Juno Shah 07/24/18 13:54: After witnessing this, I checked the room and the IV was lying on top of the trash Original Note: Nursing Note: At 1332 I witnessed patient on elevator as doors were closing. Pt was dressed and was attempting to hid behind the elevator doors as they were closing. The doors had closed before I was able to get to it.
== END 2018-07-24 13:32 | disposition left against medical advice (07) | DRG 727 ==
LOC: ER 07:27 → MS 07:55
PROVIDERS: Admitting Provider Internal Medicine; Emergency Provider Emergency Medicine; PCP Nurse Practitioner; Visit Provider Internal Medicine
DX: N49.2 Inflammatory disorders of scrotum (principal); A41.02 Sepsis due to Methicillin resistant Staphylococcus aureus; Z53.21 Procedure and treatment not carried out due to patient leaving prior to being seen by health care provider; R91.8 Other nonspecific abnormal finding of lung field; R09.02 Hypoxemia; Z11.4 Encounter for screening for human immunodeficiency virus [HIV]; D50.9 Iron deficiency anemia, unspecified; F90.9 Attention-deficit hyperactivity disorder, unspecified type; F17.210 Nicotine dependence, cigarettes, uncomplicated
CPT/HCPCS: 36415; 71275; 80048; 80053; 80307; 87040; 87389; 93005; 96361; 96365; 96366; 96374; 96375; 96376; 99223; 99232; 99239; 99285; 71045; 74177; 80202; 81003; 81015; 82728; 83540; 83550; 83605; 83735; 83880; 84484; 85025; 86140; 93010; 99219; 99284; G0378; J1885; J2060; J3370; J3490

== ENCOUNTER 2022-09-05 13:40 | Emergency (ER) | payer OTHER, SELFPAY ==
[2022-09-05 13:43] VITALS: BP 119/82; PULSE 75; RESP 18; O2SAT 100
--- NOTE | 2022-09-05 13:45 | DI.CT_ITS ---
Exam(s) CT RENAL COLIC WO EXAM: CT RENAL COLIC WO CLINICAL HISTORY: right flank pain. TECHNIQUE: Imaging Protocol: Axial computed tomography images with coronal and sagittal reformatted images were created and reviewed. CT CT CHEST PE CTA from 07/23/2018 FINDINGS: ABDOMEN: Lung Bases: There is atelectasis seen in the left lung base. Liver: Normal density. There is a stable cyst in the liver. Gallbladder and biliary tract: No radiodense calculus or biliary ductal dilation. Pancreas: Normal density, no abnormal calcifications or inflammatory process. Spleen: Normal. Kidneys: Normal size, contour and axis.There is a 3 mm stone at the right UVJ causing mild hydronephr osis. No nephrolithiasis is identified. No masses seen. Adrenal glands: No mass is seen. Lymph nodes: Within normal limits. Abdominal Aorta: Abdominal portion non-dilated. PELVIS: Bladder:Symmetric distention, no gross wall thickening. Bowel: No obstruction or bowel wall thickening. Appendix is unremarkable. Peritoneal cavity: No ascites, collection or mesenteric inflammatory response. No free air. Reproductive organs: Unremarkable as visualized. Bones: Within normal limits. Soft Tissues: Within normal limits. IMPRESSION: 1. 3 mm right UVJ stone causing mild hydronephrosis. 2. Findings were discussed with Dr. Mensah at 3:25 p.m. on 09/05/2022. RADIATION DOSE DELIVERED: 1,243.83mGy.cm Total DLP DATA REPOSITORY: All CT scans at this facility are submitted to the National Radiology Data Registry (NRDR) Dose Index Registry (DIR) with the [employer] (ACR). RADIATION OPTIMIZATION: All CT scans at this facility use at least one of these dose optimization te chniques: automated exposure control; mA and/or kV adjustment per patient size (includes targeted exa ms where dose is matched to clinical indication); or iterative reconstruction.
--- NOTE | 2022-09-05 13:59 | W.ED.GENAD ---
Discharge Plan Disposition Patient Disposition: Home Condition: Good Discharge Details Clinical Impression: Right kidney stone Primary Care Provider: Unknown,Unknown ED Provider: Munir Mensah Home Meds and New Rx's Prescriptions: New ketorolac 10 mg tablet 10 mg PO TID 5 Days Qty: 15 0RF tamsulosin [Flomax] 0.4 mg capsule 0.4 mg PO DAILY Qty: 20 0RF No Action dextroamphetamine-amphetamine 10 MG tablet 15 mg PO DAILY PRN PRN Patient Comments: not on med list dextroamphetamine-amphetamine 30 MG capsule,extended release 24hr 30 mg PO DAILY AM Patient Comments: not on med list escitalopram oxalate [Lexapro] 20 MG tablet 20 mg PO DAILY AM calcium carbonate [Calcium Antacid] 400 mg calcium (1,000 mg) Tablet,Chewable 1,000 mg PO TID docusate sodium 100 mg Capsule 100 mg PO BID omeprazole 20 mg Capsule,Delayed Release(Dr/Ec) 20 mg PO DAILY guanfacine 2 mg Tablet 2 mg PO BID naproxen 500 mg Tablet 500 mg PO BID buprenorphine HCl [Subutex] 8 mg Tablet, Sublingual 8 mg SUBLINGUAL DAILY cetirizine 10 mg Tablet 10 mg PO DAILY melatonin 3 mg Tablet 6 mg PO HS Discharge Instructions Instructions: Kidney Stones (ED) Additional Instructions: At this time you have evidence of a small kidney stone. This is likely the cause of your symptoms. This should pass within the next 12 to 48 hours, if not earlier. Please drink plenty of fluids, 10 to 12 cups/day at least. Please take the Toradol as prescribed and 1000 mg of Tylenol every 6 hours as needed for pain. These are the maximum doses of these medicines. Please take the Flomax as directed. This will help in expediting the passage of your kidney stone. If your pain stops, you can stop taking the Flomax. Please strain your urine to collect the stone. This can then be analyzed by your family doctor. If you do not have resolution of your symptoms after 48 to 72 hours please follow-up closely with your family doctor or return here for reassessment. If you notice any worsening of your symptoms, or any new symptoms such as inability to urinate, vomiting, diarrhea, fever, chills, shortness of breath, chest pain, numbness, weakness, or fainting , please return immediately to the emergency department for reevaluation. Please follow up with your primary care provider as soon as possible for reassessment and reevaluation. As always, it was a pleasure participating in your medical care today. Medical Decision Making 42-year-old male who presents today for right flank pain and right testicle pain. Patient states that at around 9 AM he developed the right flank pain that radiated towards his right testicle, the pain was moderate, however at 11:30 AM it became severe. Pain is described as aching and stabbing. He has never had anything like this before. He has been urinating frequently. He denies any blood in his urine. He denies any vomiting or diarrhea but does admit to nausea. He denies any other pain or radiation. He has not taken anything for the pain. No other complaints at this time. No other modifying factors. No history of kidney stones. Exam demonstrates noted patent male, right CVA tenderness, normal genital and testicular exam. Symptoms clinically inconsistent with testicular torsion. Differential is highest for urolithiasis, less likely appendicitis. We will get a CT scan, urinalysis, treat the patient's pain, monitor closely and reassess. 3:26 PM Laboratory work-up has returned, pain is notably improved, urinalysis is negative for any evidence of infection. Symptoms inconsistent with UTI or pyelonephritis. Patient CT scan does demonstrate evidence of a 3 mm kidney stone, no other significant abnormalities. Renal function is normal. Patient's pain is stabilized. He is able to tolerate p.o. Patient is stable for discharge. Patient will be discharged home with Toradol and Flomax. He has already been given a dose here. I have extensively reviewed the treatment plan and discharge instructions with the patient. I have addressed all patient concerns at this time. The patient was made aware of what symptoms to monitor for that would warrant a return to the emergency department. Discussed the plan with the patient, they demonstrate verbal understanding and agreement with our assessment and plan at this time. The documentation in this chart was dictated using [employer] dictation software. Please excuse any dictation errors. FINDINGS: ABDOMEN: Lung Bases: There is atelectasis seen in the left lung base. Liver: Normal density. There is a stable cyst in the liver. Gallbladder and biliary tract: No radiodense calculus or biliary ductal dilation. Pancreas: Normal density, no abnormal calcifications or inflammatory process. Spleen: Normal. Kidneys: Normal size, contour and axis.There is a 3 mm stone at the right UVJ causing mild hydronephrosis. No nephrolithiasis is identified. No masses seen. Adrenal glands: No mass is seen. Lymph nodes: Within normal limits. Abdominal Aorta: Abdominal portion non-dilated. PELVIS: Bladder:Symmetric distention, no gross wall thickening. Bowel: No obstruction or bowel wall thickening. Appendix is unremarkable. Peritoneal cavity: No ascites, collection or mesenteric inflammatory response. No free air. Reproductive organs: Unremarkable as visualized. Bones: Within normal limits. Soft Tissues: Within normal limits. IMPRESSION: 1. 3 mm right UVJ stone causing mild hydronephrosis. 2. Findings were discussed with Dr. Mensah at 3:25 p.m. on 09/05/2022. HPI General Date/Time Provider Initiated Documentation: 09/05/22 13:41. HPI Narrative: 42-year-old male who presents today for right flank pain and right testicle pain. Patient states that at around 9 AM he developed the right flank pain that radiated towards his right testicle, the pain was moderate, however at 11:30 AM it became severe. Pain is described as aching and stabbing. He has never had anything like this before. He has been urinating frequently. He denies any blood in his urine. He denies any vomiting or diarrhea but does admit to nausea. He denies any other pain or radiation. He has not taken anything for the pain. No other complaints at this time. No other modifying factors. No history of kidney stones. Related Data Home Medications Medication Instructions Recorded Confirmed dextroamphetamine-amphetamine 10 15 mg PO DAILY PRN PRN 10/21/17 07/23/18 mg tablet dextroamphetamine-amphetamine ER 30 mg PO DAILY AM 10/21/17 07/23/18 30 mg 24hr capsule,extend release escitalopram oxalate 20 mg tablet 20 mg PO DAILY AM 10/21/17 09/05/22 (Lexapro) buprenorphine HCl 8 mg sublingual 8 mg sublingual DAILY 09/05/22 09/05/22 tablet calcium carbonate 400 mg calcium 1,000 mg PO TID 09/05/22 09/05/22 (1,000 mg) chewable tablet (Calcium Antacid) cetirizine 10 mg tablet 10 mg PO DAILY 09/05/22 09/05/22 docusate sodium 100 mg capsule 100 mg PO BID 09/05/22 09/05/22 guanfacine 2 mg tablet 2 mg PO BID 09/05/22 09/05/22 ketorolac 10 mg tablet 10 mg PO TID 5 days #15 tabs 09/05/22 melatonin 3 mg tablet 6 mg PO HS 09/05/22 09/05/22 naproxen 500 mg tablet 500 mg PO BID 09/05/22 09/05/22 omeprazole 20 mg capsule,delayed 20 mg PO DAILY 09/05/22 09/05/22 release tamsulosin 0.4 mg capsule (Flomax) 0.4 mg PO DAILY #20 caps 09/05/22 Previous Rx's Medication Instructions Recorded ketorolac 10 mg tablet 10 mg PO TID 5 days #15 tabs 09/05/22 tamsulosin 0.4 mg capsule (Flomax) 0.4 mg PO DAILY #20 caps 09/05/22 Allergies Allergy/AdvReac Type Severity Reaction Status Date / Time Penicillins Allergy Intermediate throat Unverified 09/05/22 13:47 swelling and hives acetaminophen [From Tylenol] AdvReac Intermediate nausea Unverified 09/05/22 13:47 General Stated Complaint: FlankPain LIDA: 3 Review of Systems All systems reviewed & are unremarkable except as noted in HPI and below PFSH All Active Problems (Updated 09/05/22 @ 15:23 by Munir Mensah DO) Right kidney stone (Acute) Sepsis (Acute) Anemia (Chronic) Ground glass opacity present on imaging of lung (Acute) ADHD (Acute) Cellulitis of scrotum (Acute) DVT prophylaxis (Acute) Discharge planning issues (Acute) Cellulitis (Acute) Back pain (Acute) Medical History ADHD Cellulitis of scrotum ongoing Substance abuse Family History Mother Stroke Maternal grandmother Social History Smoking/Tobacco Use Status: Unknown Smoking risk assessment performed?: Yes Alcohol Intake: never Drug use: Never Household members: spouse Housing: other Details: currently living at hotel Number of Children: 2 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 3.ENT: Atraumatic external nose and ears. Moist MM. Neck: Symmetric, trachea midline, No thyromegaly. 4.CVS: +S1/S2, No murmurs or gallops. Peripheral pulses 2+ and equal in all extremities. Brisk capillary refill in all extremities. 5.RESP: Unlabored respiratory effort. Clear to auscultation bilaterally. No wheezes rales or rhonchi 6.GI: Soft, Nontender/Nondistended, No hepatosplenomegaly. No guarding or rebound. Mild right CVA tenderness on percussion. Testicle exam was performed with the nursing staff and a road crossing guard at bedside. Normal cremasteric reflex bilaterally, nontender testicles. No swelling, erythema, edema or other abnormality. 7.MSK: Normocephalic/Atraumatic, Extremities w/o deformity or ttp No cyanosis or clubbing, Normal movement of all extremities 8.Skin: Warm, Dry. No rashes or lesions. 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 Sensation grossly intact, no focal neurologic deficits. 10.Psych: (AAO) x3. Appropriate mood and affect Course Vital Signs Vital signs: Vital Signs Pulse 75 09/05/22 13:43 Respiratory Rate 18 09/05/22 13:43 Blood Pressure 119/82 09/05/22 13:43 Pulse Oximetry 100 09/05/22 13:43 Pulse 75 09/05/22 13:43 Respiratory Rate 18 09/05/22 13:43 Blood Pressure 119/82 09/05/22 13:43 Blood Pressure Position Sitting 09/05/22 13:43 Pulse Oximetry 100 09/05/22 13:43 Oxygen Delivery Method Room Air 09/05/22 13:43 Oxygen Flow Rate 0 09/05/22 13:43 Pain Level 10 09/05/22 13:43
[2022-09-05 14:03] LABS: Abs Immature Grans 0.03 10^3/uL (0.0-0.06); Absolute Basophil Count 0.05 10^3/uL (0.0-0.2); Absolute Eosinophil Count 0.19 10^3/uL (0.0-0.7); Absolute Lymphocyte Count 3.65 10^3/uL (1.2-3.4); Absolute Monocyte Count 0.77 10^3/uL (0.1-0.8); Absolute Neutrophil Count 6.25 10^3/uL (1.2-6.7); Basophils % 0.5; Eosinophils % 1.7; HCT 40.2 % (40.0-50.0); HGB 13.1 g/dL (13.5-17.5); Immature Grans % 0.3; Lymphocytes % 33.4; MCH 28.4 pg (27.0-33.0); MCHC 32.6 % (32.0-36.0); MCV 87 fL (80-95); MPV 10.1 fL (8.0-11.0); Neutrophils % 57.1; Platelet Count 238 10^3/uL (130-400); RBC 4.61 10^6/uL (4.36-5.78); RDW-SD 40.9 fL; WBC 10.94 10^3/uL (4.4-10.8)
[2022-09-05] MEDS: Ketorolac 15 MG/ML VIAL IVP (14:11)
[2022-09-05] MEDS: Normal Saline 1,000 ML 1000 ML IV (14:12)
[2022-09-05] MEDS: MORPHine 4 MG/ML SYR IVP (14:12)
[2022-09-05] MEDS: Tamsulosin 0.4 MG CAPCR PO (14:12)
[2022-09-05 14:25] LABS: ALT 23 U/L (16-63); AST 28 U/L (15-37); Albumin 4.4 g/dL (3.4-5.0); Alkaline Phosphatase 104 U/L (46-116); Anion Gap 9.8 mmol/L (3-11); BUN 20 mg/dL (7-18); Bilirubin, Total 0.6 mg/dL (0.2-1.0); CO2 27.2 mmol/L (21.0-32.0); CREATININE 1.3 mg/dL (0.70-1.30); Calcium 9.6 mg/dL (8.5-10.1); Chloride 100 mmol/L (98-107); Estimated GFR 70.34 (mL/min/1.73m2); Glucose 108 mg/dL (74-106); Potassium 3.6 mmol/L (3.5-5.1); Sodium 137 mmol/L (136-145); Total Protein 8.5 g/dL (6.4-8.2)
[2022-09-05 14:30] LABS: Bilirubin Negative (Negative); Blood Trace-lysed (Negative); Clarity Clear (Clear); Glucose Negative (Negative); Ketones Negative (Negative); Leukocyte Esterase Negative (Negative); Nitrite Negative (Negative); Urobilinogen 0.2 mg/dL (Up to 0.2); pH 6.5 (5-8)
[2022-09-05 14:42] LABS: Bacteria Negative HPF (Negative); C & S Indicated? No; Casts Negative LPF (Negative); Crystals Negative HPF (Negative); Epithelial Cells Rare HPF (Negative); Mucus Negative (Negative); RBC 0-2 HPF (0-2); WBC 0-2 HPF (0-5)
== END 2022-09-05 15:46 | disposition home or self-care (01) ==
PROVIDERS: Emergency Provider Student in an Organized Health Care Education/Training Program
DX: N20.0 Calculus of kidney (principal); R30.9 Painful micturition, unspecified; M54.59 Other low back pain
CPT/HCPCS: 36415; 80053; 96361; 96374; 96375; 99284; 74176; 81003; 81015; 85025; J1885; J2270